=== PATIENT | male | born 1995 | race Caucasian/White ===

== ENCOUNTER 2025-06-05 08:00 | Outpatient (RCR) | payer BC, SELFPAY ==
--- NOTE | 2025-06-05 10:00 | BH.SGPN.GN ---
Behaviors/Verbalizations/Mental Status: []Eye contact is good. Motor activity is appropriate. Appearance is neat. Speech is Appropriate. Mood is anxious. Affect is congruent. Thoughts are linear and logical. No evidence of psychosis. Client Response/Progress/Benefit: [] Pt was an active participant in group discussions. Attentive during psychoeducation. Contributed during interactive discussions in which peers attempted to define crisis. Group identified crisis examples. Group also worked together to identify warning signs and unhealthy responses to crisis which included shutting down, isolation, avoidance, over-thinking, disordered eating, and self-harm. Pt identified top 3 warning signs as: avoids eating, negative thoughts, avoiding anxiety-provoking situations. Benefited from increased understanding of crisis and awareness of personal responses to crisis. Pt will continue IOP tx to prevent decompensation, gain healthy coping skills, and improve daily functioning. Narrative Note: []
--- NOTE | 2025-06-05 10:17 | BH.COMM_ITS ---
Communication Note Communication with Client Communication Note: Met with pt to complete initial paperwork. Discussed case with Dr. Faust and pt will be admitted to [facility] tx with a diagnosis of F41.1 NICOLE.
--- NOTE | 2025-06-05 10:17 | BH.COMM ---
Communication Note Communication with Client Communication Note: Met with pt to complete initial paperwork. Discussed case with Dr. Faust and pt will be admitted to [facility] tx with a diagnosis of F41.1 NICOLE.
--- NOTE | 2025-06-05 11:00 | BH.SGPN.GN ---
Behaviors/Verbalizations/Mental Status: []Pt alert and oriented, appropriate grooming/appearance. Eye contact fair. Motor activity appropriate. Speech within normal limits. Affect constricted, mood anxious. Thoughts linear, logical, no signs of hallucinations or delusions. Client Response/Progress/Benefit: []Pt was an active participant in group discussions. Attentive during psychoeducation. In small group pt along with peers developed an active plan for their crisis warning signs. Pt identified three crisis warning signs as well as an action plan for each. One crisis warning sign was avoiding anxious situations. Pt identified strategies to help with this such as: slowly introduce a anxious situation, list rational thoughts to counteract the anxious thoughts, and create a fear hierarchy to engage in small exposure goals. Benefited from increased awareness of crisis warning signs and by developing crisis intervention strategies. Will continue in IOP to improve daily functioning, increase healthy coping, and prevent decompensation.
--- NOTE | 2025-06-05 13:07 | BH.MDN ---
Multi-Disciplinary Note Note 30-min Individual: Time Started:: 11:55 Date: 06/05/25 Purpose of session/treatment goals addressed:: To gather information on pt's current stressors, symptoms, triggers, history, and tx goals. Another goal was to build rapport and provide emotional support. Eye Contact:: Good Motor Activity:: Appropriate Appearance:: Neat Speech:: Soft Mood:: Anxious Affect:: Congruent Thoughts:: Linear, Logical and No evidence of hallucinations/delusions noted Staff Interventions:: psychoeducation on: (Fear ladders and anxiety), rapport building, strengths perspective, treatment planning and goal setting Client Response:: Pt responded well to session, open to meeting with therapist. Pt shared his first day went well and pt feels that hearing from peers with similar experiences was helpful. Pt shared he wants to work on my stress with food and stress with the cat. Pt stated he has struggled with appetite and GI issues throughout his life so now I spiral thinking about eating. Pt shared he can only eat right now if he takes one of his Klonopins and even then pt reports I don't really enjoy it. Pt also wants to be able to be able to handle having the cat because it's important for my . Pt shared right now the kitten he and his have stays in the basement and pt basically avoids it. Pt reports he is not a cat person in general, but he is more fearful of what could happen if the cat lives upstairs. Pt shared I know it's irrational, but I just think the cat is going to ruin all the things and I tell myself I can't do it. Pt stated he can be particular about his environment, so pt is highly anxious about the cat messing that up. Pt shared he currently avoids the cat and he constantly distracts himself because pt is so afraid I'll have a panic attack. Pt reports that he knows his reaction is out of proportion to the situation and pt wants to be able to co-exist with the cat. Pt receptive to treatment planning including creating a fear ladder and building distress tolerance. Risks/Concerns:: Pt denies any suicidal ideation, plan, or intent. Pt denies any thoughts of . Progress Toward Goals/Plan:: Pt's first day of IOP tx and pt shared it went okay. Pt shared he enjoyed listening to peers talking about their own experiences and this helped pt feel less alone. Pt stated he wants to work on his issues with food and the cat. Pt and therapist discussed goals to help pt get back to his usual functioning and reduce avoidance. Pt will continue IOP tx to gain healthy coping skills, improve daily functioning, and increase distress tolerance. Time Stopped:: 12:15
--- NOTE | 2025-06-05 13:24 | BH.MTP_ITS ---
Master Treatment Plan Patient Information Program Physician:: Dr. Ron Faust Primary Therapist:: Sammie PARKINSON Psychiatric Diagnoses Psychiatric Diagnoses:: NICOLE F41.1 Diagnosis Code(s):: F41.1 Estimated LOS Estimated LOS (in weeks):: 6 Problem/Goal #1 Problem/Goal #1 Stated Goal:: Pt will reduce overall frequency and intensity of NICOLE symptoms so that daily functioning is less impaired. Description of Barriers: Pt reports his anxiety has been impacting his functioning at work, home, and within his relationships. Pt has health issues that get exacerbated by his anxiety and that also trigger his anxiety. Functional Impact: Pt is a 29-year-old male with a history of NICOLE who was referred to [facility] tx by his outpatient therapist at [facility] due to worsening anxiety and decompensation over the past two months. Pt currently endorses daily anxiety with panic attacks, racing thoughts, avoidance behaviors, poor appetite, weight loss, and nausea. Pt also reports occasional passive SI due to the stress he has been under, but no report of active SI. Pt's symptoms are impacting his ability to function on a daily basis. Goal Relevant Strengths/Supports: Pt is established with outpatient counseling through [facility] and he is taking his medications as prescribed. Pt enjoys his work and has supports in his life. Objectives Objective #1: Stated Objective: Pt will improve ability to cope with NICOLE symptoms and reduce avoidance by setting 1-2 small exposure goals each week. Interventions: Through group and individual therapy, pt will gain skills on distress tolerance and sitting with the uncomfortable. Therapist will help pt set small, realistic exposure goals each week. Therapist will have pt practice these goals both in session and at home. Therapist will provide psychoeducation on why this is important to reducing anxiety, somatic symptoms, and phobias. Therapist will also provide psychoeducation on intrusive thinking and reducing safety behaviors. Discharge Criteria: Pt will have accomplished this goal when pt can report accomplishing at least 1 exposure goal per week and can report reduced avoidance overall. Target Date: 07/17/25 Review Date: 06/26/25 Status: open Objective #2: Stated Objective: Pt will identify 2-3 anxiety and panic triggers and 2 coping skills to use to manage anxiety and to reduce DSM-5 scores. Interventions: Through group and individual sessions, pt will gain awareness of anxiety and panic triggers and learn numerous techniques to manage anxiety and panic symptoms. Therapist will teach mindfulness and other calming techniques to manage symptoms and increase distress tolerance skills. Therapist will also help pt utilize mindfulness skills to sit with the uncomfortable to increase confidence in managing triggers. Discharge Criteria: Pt will have met this goal when pt can identify at least 2 triggers and 2 ways to cope with anxiety and panic and when his DSM-5 scores have reduced. Target Date: 07/17/25 Review Date: 06/26/25 Status: open
--- NOTE | 2025-06-05 13:24 | BH.PSA ---
Source of Information Presenting Problems/Circumstances Problems, Referral Source, Mental Status, Client: Pt is a 29-year-old male with a history of NICOLE who was referred to [facility] tx by his outpatient therapist at [facility] due to worsening anxiety and decompensation over the past two months. Pt currently endorses daily anxiety with panic attacks, racing thoughts, avoidance behaviors, poor appetite, weight loss, and nausea. Pt also reports occasional passive SI due to the stress he has been under, but no report of active SI. Pt's symptoms are impacting his ability to function on a daily basis. Psychiatric Presentation Psych Issues & Need for Admission Psychiatric Issues:: NICOLE, Rule out somatic symptom disorder; primary martial stress. Past Psychiatric History MH Treatment Hx Treatment History: Pt denies history of any previous hospitalization. Pt started seeing a therapist at [facility] about three years ago and has seen them on and off. Pt has never been in an [facility] before. First hospitalization:: none Most recent hospitalization:: none Medication Trials:: Yes ECT Therapy:: No Age of first mental health symptoms: Pt began struggling about three years ago at age 26. Describe (age, circumstance, etc) any past hospitalizations: Pt denies any hospitalizations Current providers for mental health treatment (counselor, psychiatrist, top case assembler, etc.): No current psychiatrist. Pt sees Angy Espinoza at [facility] but has not seen her in about a month. Development & Family of Origin Childhood Significant Childhood Events: none reported Family Who currently lives in your home?: Pt lives with his and their cat. Describe family composition:: Pt is and he describes their relationship as mostly good, but they are having some conflict currently. Pt has one older sister and both his parents are alive. Pt has a good relationship with his family. Pt and his have no children. Family History Family Hx of Psychiatric or AOD Problems: Mother and sister have anxiety per pt's report Ethnicity Culture Do you identify yourself with any particular cultural, ethnic background, or community?: No Sexuality Sexual Orientation: Heterosexual Spirituality Mormonism Do you currently identify with any organized episcopal?: None Beliefs Is there a particular form of support from this community you can use for your recovery?: No Mental Status Memory Recent Memory: Good Remote Memory: Good Concentration Concentration: Good Eye Contact Eye Contact: Good and Stares Speech Speech: Soft Thought Process Thought Process: Logical and Ruminations Insight: Fair Judgment: Good Behavior: Anxious Orientation Orientation: Time, Person, Place and Situation Appearance Appearance: Neat/clean Mood Mood: Anxious and Depressed Affect Affect: Constricted Suicide Assessment Suicidal Ideation Have you ever felt like hurting yourself?: No Were you using ETOH/drugs at the time?: No Suicidal Intentional Rating Scale (SIRS): No suicidal thoughts (past or present) Physician Notification Violent Behavior/Abuse History Homicidal Ideation Do you have any homicidal thoughts? If so, explain:: No Abuse Have you ever been abused?: No Life Events Are there any other significant life events?: Hardships (current stress with work, marriage, and health.) Safety Do you ever feel threatened in your home? If yes, describe:: No Adult Social History Age 18 to Present Describe your current support system:: Pt has his , his family, and a few friends. Substance Use Substance Substance Use Type: None (pt denies any substance and alcohol use.) Leisure/Social Activities Interests What do you enjoy or might be interested in learning about?: Pt enjoys reading, being outside, and cooking when he feels well. 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 Service Service Have you ever been in the ?: No Legal History Records Have you had any past legal charges?: No Do you have any current legal charges?: No Have you ever been incarcerated? If yes, describe:: No Court Orders Have you had any past court orders for psychiatric treatment?: No Do you have a present court order for psychiatric treatment?: No Problem Checklist Current Problem Areas Problem List: Nutritional/Eating pattern changes (Doesn't like going out to eat because he is fearful he might need to run to bathroom. Does frequently feel anxious in other situations like having to travel, again frequently associated with GI complaints. ), Depressed mood/sad, Anxiety and Additional psychosocial stressors (work and marriage stress. Stress around his new cat.) Discharge Planning Needs Anticipated Follow-Up Mental Health Center (Name/Phone Number):: [facility] [employer] [facility] Assessment Client's Needs What are the client's goals?: Reduce anxiety and be able to handle things people can normally handle. What are the client's strengths?: Pt is established with outpatient counseling through [facility] and he is taking his medications as prescribed. Pt enjoys his work and has supports in his life. Diagnoses Diagnoses Diagnosis #1:: NICOLE Interpretive Summary Interpretive Summary Interpretive Summary: Pt is a 29 year old male who presents today for IOP intake evaluation. Pt admits to some significant stress after his got a new cat. States that for some reason it got me really stressed out. Started having increasing nausea and reduced appetite; lost 15 lbs over the course of the last month. They had found the cat, and his initial expectations were that they were going to rehome the cat but she wanted to keep it; which led to some conflict. Pt reports he and his have a mostly good relationship, but this has been a significant stressor. Reports that his relationship with food has been not great. Elaborates that he has a history of GI problems as a child so when anxious experiences worsening somatic symptoms. Doesn't like going out to eat because he is fearful, he might need to run to bathroom. Does frequently feel anxious in other situations like having to travel, again frequently associated with GI complaints. Pt remembers being anxious in school and also in social situations, but anxiety did not start impacting his functioning until about three years ago. Describes even feeling anxious about the program and the potential of having to share. Pt went to his PCP when he first started to decompensate and was put on medication that pt felt was only somewhat helpful. 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 Subsequently missed nearly a week of work after this episode. Feels like he has not had regular panic attacks since taking clonazepam. No report of substance or alcohol use/abuse. No family history of substance abuse reported. Pt denies any abuse during childhood. Pt?s mother and sister both have anxiety. Treatment Plan Recommendations Recommendations Guidelines Recommendations:: Pt will start IOP as the structure, support, education and group therapy with ideally prevent worsening of patient's symptoms which could result in admission to higher level of care such as [facility] or psychiatric admission. I have reasonable expectation that pt will make timely and significant improvement in the presenting acute symptoms as a result of the program and eventually be discharged to a lower level of care. Pt will need a psychiatrist prior to IOP discharge.
--- NOTE | 2025-06-07 09:00 | BH.SGPN.GN ---
Behaviors/Verbalizations/Mental Status: [] Eye contact is good. Motor activity is appropriate. Appearance is casual. Speech is Appropriate. Mood is euthymic. Affect is full. Thoughts are linear and logical. No evidence of psychosis. . Client Response/Progress/Benefit: [] Pt participated at times during the group discussions. Attentive. Able to identify mental health wins and healthy habits. Reports feeling ?content? and seeing ?improvement? in his mental health. Engaged in household tasks yesterday indicating motivation, energy, and ability to focus. Progress noted per pt report. Benefited from group support, encouragement, and feedback. Will continue in IOP to prevent decompensation, stabilize anxiety/intrusive thoughts, and increase healthy coping. Narrative Note: []
--- NOTE | 2025-06-07 10:10 | BH.SGPN.GN ---
Behaviors/Verbalizations/Mental Status: [] Eye contact good, Motor activity is appropriate, Appearance is neat. Speech appropriate. Mood calm. Affect congruent. Thoughts are linear and logical. No evidence of psychosis. Client Response/Progress/Benefit: [] Pt was an active participant during interactive group discussions. Attentive during discussion of the different types of boundaries (rigid, porous, healthy) Took notes and provided input. Contributed to the discussion on defining boundaries and the benefits and barriers to them. Active participant in the boundary continuum activity. Identified boundary type as more porous, sharing that he often does not enforce boundaries due to fear of an argument. Group discussed mental health benefits to establishing boundaries, and also situations in which lessening boundaries are appropriate. Pt benefited from increased awareness and insight on the importance of boundary setting. Pt will continue in IOP to increase healthy coping skills, reduce negative thought patterns, and improve functioning.
--- NOTE | 2025-06-07 11:10 | BH.SGPN.GN ---
Behaviors/Verbalizations/Mental Status: []Pt alert and oriented, casually dressed and groomed. Eye contact fair. Motor activity appropriate. Speech within normal limits. Affect congruent, mood anxious. Thoughts linear, logical, no signs of hallucinations or delusions. Client Response/Progress/Benefit: [] Client responded well to session AEB listening attentively to peers, providing input, as well as taking notes throughout. Group discussed different styles of boundary setting. Worked with group to discuss positive and negative consequences from each boundary style. Participated in small group discussion brainstorming various strategies for improving healthy boundary setting. Pt took time to complete reflection on which skills would like to implement to improve boundaries. Seemed to benefit from increased awareness of how different boundary styles can impact mental health. Will continue IOP tx continue working on decreasing anxious avoidance, improve emotion regulation, and prevent decompensation.
--- NOTE | 2025-06-08 07:45 | PCM.BH.PSYEV ---
Intake Vital Signs 06/08/25 09:28 Height 5 ft 9 in Weight: 147 lb BP 145/92 H Pulse 72 Intake Visit Reasons: IOP Intake Allergies cephalexin (From Keflex) Adverse Reaction (Mild, Verified 06/08/25 09:18) Rash sulfamethoxazole (From Septra) Adverse Reaction (Unknown, Verified 06/08/25 09:18) Rash trimethoprim (From Septra) Adverse Reaction (Unknown, Verified 06/08/25 09:18) Rash Penicillins Adverse Reaction (Verified 06/08/25 09:18) Rash Medications ?Medication ?Instructions ?Recorded ?Confirmed ?Type buspirone 15 mg tablet 15 mg PO BID #60 tabs 06/08/25 06/08/25 Rx clonazepam 0.5 mg tablet 0.5 mg PO QHS 06/08/25 06/08/25 History clonazepam 0.5 mg tablet (Klonopin) 0.5 mg PO DAILY PRN anxiety 06/08/25 06/08/25 History escitalopram oxalate 20 mg tablet 20 mg PO DAILY 06/08/25 06/08/25 History hydroxyzine pamoate 50 mg capsule 50 mg PO Q8H PRN PRN anxiety 06/08/25 06/08/25 History mirtazapine 7.5 mg tablet 7.5 mg PO BID 06/08/25 06/08/25 History PFSH () Medical History (Updated 06/08/25 @ 08:[address] Ron Faust, ) NICOLE (generalized anxiety disorder) HPI () History of Present Illness History provided by: patient Chief complaint: anxiety HPI: Jericho Brown is a 29 year old male who presents today for IOP intake evaluation. Patient admits to some significant stress after his got a new cat. States that for some reason it got me really stressed out. Started having increasing nausea and reduced appetite; lost 15 lbs over the course of the last month. They had found the cat, and his initial expectations were that they were going to rehome the cat but she wanted to keep it; which led to some conflict. Reports that his relationship with food has been not great. Elaborates that he has a history of GI problems as a child so when anxious experiences worsening somatic symptoms. Doesn't like going out to eat because he is fearful he might need to run to bathroom. Does frequently feel anxious in other situations like having to travel, again frequently associated with GI complaints. Remembers being anxious in school and also in social situations. Describes even feeling anxious about the program and the potential of having to share. Currently taking 20 mg lexapro and mirtazapine 7.5 mg BID. Has taken several other medications in the past. Also taking clonazepam, usually taking 0.5 mg in the morning and night. Been on for the past 3 years. Takes buspirone 15 mg qHS as well. Feels like nightly combination helps so that he can eat, but morning is not quite as effective. Denies feeling significantly depressed. Has been trying to read at night and this has been helping. 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 Subsequently missed nearly a week of work after this episode. Feels like he has not had regular panic attacks since taking clonazepam. Sleep: gets about 8 hours Interest: normally good, but harder in the last 6 weeks Guilt: some mild guilt about the way he is feeling Energy: some daily grogginess Concentration: good Appetite: see above Psychomotor: WNL Suicide: denies Memory: largely good Anxiety: see HPI Obsessions: denies Compulsions: denies Mercedes: denies PTSD: denies Psychosis: denies history of auditory or visual hallucinations, denies disorganized thoughts, denies disorganized speech Developmental History Developmental History: Siblings - 1 sister, older Born/Raised - [place], [place] Education - [employer] Living Situation - lives with Legal Issues - denies Employment - works at [employer] for the past 8 years; [employer] Psychiatric History Previous psychiatric treatment history: No Previous psychiatric diagnoses: NICOLE Previous psychiatric treatment programs: none Family Psychiatric History: Mother - anxiety Sister - anxiety Suicidal Ideation Current: No Past: No History of suicide attempt: No Suicide Risk Assessment Suicide risk factors: physical illness/pain and other (anxiety) Suicide protective factors: family support Self Injurious Behavior Current: none Past: none Medication Trials Previous psychiatric medication trials: escitalopram buspirone clonazepam mirtazapine trazodone - night sweats citalopram hydroxyzine - no benefit Current/Previous Provider Psychiatrist: denies previous Therapist: Angy nino [facility], about a month ago Other Substance Use History Nicotine- denies Alcohol- denies Marijuana- denies Stimulants- denies Opioids- denies Other- denies Review of systems () Constitutional Denies: fever(s), chills, change in weight or fatigue Eyes Denies: change in vision or blurry vision Ears, Nose, Mouth, Throat Denies: throat pain, neck pain or change in hearing Cardiovascular Denies: chest pain, palpitations or dyspnea Respiratory Denies: dyspnea, cough or wheezing Gastrointestinal Reports: abdominal pain, nausea and diarrhea; Denies: vomiting or constipation Genitourinary Denies: dysuria or urinary frequency Musculoskeletal Denies: back pain, neck pain, joint pain or muscle weakness Integumentary/Breast Denies: rash or new lesions Neurological Reports: headache(s); Denies: dizziness or confusion Endocrine Denies: fatigue or excessive sweating Hematologic/Lymphatic Denies: easy bruising or easy bleeding Allergic/Immunologic Denies: wheezing Exam () Mental Status Exam- Psych () Appearance casually dressed Attitude cooperative Activity/Motor Behavior MSE activity/motor behavior finding no adventitious movements Speech regular rate, regular volume and regular prosody Mood anxious Affect congruent Thought Process linear, logical and coherent Thought Content no delusions and no hallucinations Suicidal Ideation none Homicidal Ideation none Attention intact Concentration intact Sensorium/Orientation awake, alert and oriented x3 Memory/Cognition other (appropriate for stated age) Insight fair Judgement good Exam () Constitutional Documenting provider has reviewed patient's vital signs: yes Common normals: no acute distress, patient oriented x3 and alert General appearance: well developed Neuro Common normals: patient oriented x3 Sensorium/orientation: alert Gait (neuro): normal gait Assessment & Plan () Assessment & Plan (1) NICOLE (generalized anxiety disorder): Plan: - somatic symptom disorder (?) - Change buspirone to 15 mg BID - consider only taking mirtazapine at bedtime as opposed to the BID dosing he is doing now - Patient advised of the risk benefits and possible side effects of mirtazapine including but not limited to sedation, weight gain, GI side effects and dry mouth. ?Patient agreeable to trial medication at the time. - continue lexapro -Patient was informed about the risk, benefits and possible side effects of SSRI type medications. These side effects include but are not limited to nausea, diarrhea, headache, increased bleeding risk, and sexual dysfunction. 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 or psychiatric admission. I have reasonable expectation that the patient will make timely and significant improvement in the presenting acute symptoms as a result of the program and eventually be discharged to a lower level of care. Charges/Coding Behavior Health Behavior Health Psychiatric Evaluation: 47830 Psych Diag Exam w/ Medical Services
--- NOTE | 2025-06-08 07:45 | BH.DR.ITP ---
Initial Treatment Plan Patient Information Visit Information: ADMISSION DATE: 06/08/2025 EXPECTED LOS: 4-6 weeks Problems/Symptoms Problem #1:: anxiety Symptom:: nausea/GI symptoms, nervousness, shortness of breath, panic
--- NOTE | 2025-06-08 09:00 | BH.SGPN.GN ---
Behaviors/Verbalizations/Mental Status: [] Client alert and oriented, casual appearance. Eye contact fair. Motor activity appropriate. Speech within normal limits. Affect congruent, mood anxious. Thoughts linear, logical, no signs of hallucinations or delusions. Reviewed client's symptom tracker, no risk for suicidal ideation, plan, or intent. Client Response/Progress/Benefit: [] Client responded well to session AEB listening to others and sharing thoughts/feelings. Client reported month of positive as having a hard position with his about boundaries with their cat. Client noted additional mental positive as being able to eat 3 meals yesterday. Client noted continued stressor as the cat and work. Appeared to benefit from support from peers. Will continue IOP tx to decrease anxious avoidance, challenge negative thoughts, and prevent decompensation. Narrative Note: []
--- NOTE | 2025-06-08 09:00 | BH.NA ---
Physical Data Vital Signs Pulse Rate: 72 Blood Pressure: 145/92 Height/Weight Height: 1.75 m Weight:: 66.678 kg Weight in Pounds: 147.0 lbs Current Medication Compliance Medication Compliance Do you take your medication as prescribed?: Yes Functional Assessment Sleep Pattern Describe any problems with sleeping: Client states he sleeps 7-8 hours per night. Sensory/Communication Assess Communication Problems Do you have difficulty understanding what people are saying?: No Medical Problems/History Gastrointestinal Conditions Gastrointestinal: Other (See comments) (mild IBS) Pain Assessment Do you have acute or chronic pain?: No Surgical History Surgical History Have you had any surgeries? If so, list type and date:: Yes (ear tubes) Substance Abuse Substance Abuse Please describe substance abuse in the last 30 days:: Client denies alcohol, tobacco or substance use. Client drinks tea daily with caffeine. Mental Status Summary Mental Status Significant Findings/Observations on Appearance and Mood:: Client is alert and oriented x 4. Client is casually groomed with good hygiene. Client is cooperative with assessment. Client makes fair eye contact. Client's voice has normal rate and volume. Client appears mildly anxious. Client has a mood congruent affect. Client makes logical associations and has normal processing. Client denies delusions/hallucinations. Client denies SI at this time. Suicide Assessment Suicidal Ideation Are you currently or have you been suicidal in the past?: Yes Suicidal Intentional Rating Scale (SIRS): Suicidal thoughts (past) (occasional passive SI in the past) Physician Notification Past Psychiatric History MH Treatment Hx Past Psychiatric Medications:: Trazodone (caused night sweats), Celexa Age of first mental health symptoms: Client states he can remember feeling anxious most of his life. Client states he first started medication for anxiety around age 19. Describe (age, circumstance, etc) any past hospitalizations: None. Current providers for mental health treatment (counselor, psychiatrist, casework specialist, etc.): Angy Espinoza for therapy at [facility] Risk Assessment Age Age: Less than 60 Mental Status Mental Status: Willing & able to ask for assistance when needed Physical Status Physical Status: No problems Impairments Impairments: None Elimination Elimination: Continent AND independent Gait or Balance Gait or Balance: Walks independently Hx of Falls History of falls in the past 6 months: No known history Medications/Substances Psychotropics:: Antidepressants and Anxiolytics (e.g. benzodiazepines) Medications/substances used within the past 24 hours or ordered to administer: 1-2 of the medications/substances listed above Total Score Total Points:: 1 RN Summary of Impressions Impressions Recommendations Impressions: Psychiatric Issues: Generalized Anxiety Disorder Level of Care How do the client's current symptoms and functional deficits support need for this level of care?: Client was referred to IOP by his outpatient therapist for a decompensation in his mental health over the last 6-8 weeks. Client states he found a cat and brought it home with intentions on finding it a home but now his wants to keep the cat and this is a stressor because he does not like cats. Client states this has lead to other relationship stressors. Client also states he had a huge 5 month long project at work that just came to a close and he is wondering if this shift is causing him some mental stress as well. Client denies SI at this time, but does report some passive thoughts of occasionally. Client reports feeling anxious, having racing thoughts and a decrease in appetite which has lead to slight weight loss. IOP will promote gains and prevent further decompensation while providing social support and skills training. Nutritional Screen Height/Weight Height: 1.75 m Weight:: 66.678 kg Weight in Pounds: 147.0 lbs Nutrition Screening Normal Weight: 70.307 kg Normal/Usual Weight in Pounds: 155.0 lbs Have you lost weight without trying: Yes Have you been eating poorly because of a decreased appetite: Yes (decreased appetite due to anxiety, states he does not usually have issues with appetite and does not feel he needs a dietary consult) Recently been on tube feeds, TPN, or have any nutritional access device in place: No Have any large open wounds or wounds that are not healing: No Calculated Weight Change: [id number] Change in weight Score: 1 MST Screening Tool Score: 4 *Automatic Nutrition referral for a score of 2 or greater.*: decreased appetite due to anxiety with recent weight loss due to stress, states he does not usually have issues with appetite and does not feel he needs a dietary consult
[2025-06-08 09:28] VITALS: BP 145/92; PULSE 72
--- NOTE | 2025-06-08 10:15 | BH.SGPN.GN ---
Behaviors/Verbalizations/Mental Status: []Pt alert and oriented, neatly dressed and groomed. Eye contact good. Motor activity appropriate. Speech within normal limits. Affect constricted, mood anxious. Thoughts linear, logical, no signs of hallucinations or delusions. Client Response/Progress/Benefit: [] Pt engaged and actively participating in discussion, taking notes. Pt attentive during psychoeducation about the window of tolerance and noted personal connections. Group identified what contributes to low distress tolerance. The group gained awareness of the three zones of tolerance and pt was able to identify what they look like in each zone. Pt shared personal signs in hyperarousal zone are: lack of self-care, irritation, and irrational thinking. Pt shared signs in the window of tolerance, they feel controlled, positive, and in-check. Pt appeared to benefit from psychoeducation on distress tolerance and practicing self-reflection. Pt will continue IOP tx to improve daily functioning, increase distress tolerance, and improve mood stability. Narrative Note: []
--- NOTE | 2025-06-08 11:15 | BH.SGPN.GN ---
Behaviors/Verbalizations/Mental Status: []Pt alert and oriented, casually dressed and groomed. Eye contact good. Motor activity appropriate. Speech within normal limits. Affect congruent, mood anxious. Thoughts linear, logical, no signs of hallucinations or delusions. Client Response/Progress/Benefit: [] Pt responded well to session AEB taking notes and contributing to discussion throughout. Pt engaged as group continued discussion on distress tolerance and the mental health benefits of widening their overall Window of Tolerance. Pt engaged with group in experiential activity provided input on connections between variables in the activity and distress tolerance. Worked within small groups to identify strategies to increase distress tolerance and reduce hyper-arousal and hypo-arousal states. Identified wanting to begin implementing distress tolerance skills of: changing environment, deep breathing, and talking to his . Pt appeared to benefit from gaining insight and learning strategies to increase distress tolerance. Pt will continue IOP tx to promote use of healthy coping skills, improve mood stability and distress tolerance, and prevent decompensation. Narrative Note: []
--- NOTE | 2025-06-12 09:00 | BH.SGPN.GN ---
Behaviors/Verbalizations/Mental Status: [] Eye contact is good. Motor activity is appropriate. Appearance is casual. Speech is Appropriate. Mood is anxious. Affect is congruent. Thoughts are linear and logical. No evidence of psychosis. Client Response/Progress/Benefit: [] Pt participated when prompted. Attentive. Brief check in this AM. Identified recent stressors and their impact on thoughts and overall mental health. Mental health win is that he is continuing with household tasks. Emotion is ?calm?. Progress noted. Benefited from group support, encouragement, and feedback. Will continue in IOP to prevent decompensation, stabilize anxiety/intrusive thoughts, and increase healthy coping. Narrative Note: []
--- NOTE | 2025-06-12 11:10 | BH.SGPN.GN ---
Behaviors/Verbalizations/Mental Status: []Client alert and oriented, casually dressed and groomed. Eye contact good. Motor activity appropriate. Speech within normal limits. Affect congruent, mood anxious and depressed. Thoughts linear, logical, no signs of hallucinations or delusions. Client Response/Progress/Benefit: [] Pt participated throughout AEB contributing to discussion, providing examples, and taking notes. Pt provided input during discussion on the types of support our supports can provide. Pt able to identify current support system and barriers that get in the way of using supports. Pt reported after identifying what type of supports pt receives, pt gained awareness that pt could benefit from more emotional support by continuing to reach out to new people and gain new perspectives. Pt seemed to benefit from identifying the type of support pt needs to work on improving. Pt recommended to continue IOP tx to promote increase positive self-talk, improve mood stability, and prevent decompensation. Narrative Note: []
--- NOTE | 2025-06-12 15:17 | BH.MDN ---
Multi-Disciplinary Note Note 45-min Individual: Time Started:: 10:20 Date: 06/12/25 Purpose of session/treatment goals addressed:: To work on goal #1 of pt's tx plan by developing pt's fear ladder and practicing calming skills. Eye Contact:: Good Motor Activity:: Appropriate Appearance:: Neat Speech:: Appropriate Mood:: Euthymic and Anxious Affect:: Full Thoughts:: Linear, Logical and No evidence of hallucinations/delusions noted Staff Interventions:: CBT techniques, mindfulness skills (practiced progressive muscle relaxation), strengths perspective, goal setting, taught coping skills and other (reviewed fear ladders and developed pt's fear ladder. Set goal for exposure for the week.) Client Response:: Pt responded well to session, open to meeting with therapist. Pt reports he has been doing better so far this week. Pt shared his appetite is slowly returning and he was able to mow and cook this weekend. Pt reports his mood improvement is likely a combination of a medication adjustment and IOP. Pt completed his homework from last session which was to identify situations that he has been avoiding due to anxiety and ranking these. Pt will use these to create fear ladder goals and pt and therapist discussed the ranking of pt's situations. Pt learned how to approach fear ladders to get the most benefit which includes intentionality, prolonged exposure, and the ability to repeat. Also discussed potential barriers such as avoidance tactics like being on his phone. Pt's goal for the week is to go to the basement and spend 20 minutes with his cat every evening. Pt reports this will trigger some anxiety, but not severe anxiety. Rehearsed calming [id number] pt can use while practicing his exposure goal. Pt reports he plans to practice this each night before he showers. Risks/Concerns:: Pt denies any suicidal ideation, plan, or intent. Pt denies any thoughts of . Progress Toward Goals/Plan:: Pt reports he is benefitting from IOP tx so far and reports feeling less anxious than last week. Pt feels that he is connecting with peers and learning from the topics. Pt reports his anxiety is reduce this week, but pt noted that there wasn't a lot of stressors this weekend though. Pt is still avoiding things due to his anxiety and he is experiencing physical symptoms still. Pt receptive to working on his fear ladder for homework. Pt will continue IOP tx to prevent decompensation, improve daily functioning, and gain distress tolerance skills. Time Stopped:: 11:00
--- NOTE | 2025-06-14 09:00 | BH.SGPN.GN ---
Behaviors/Verbalizations/Mental Status: [] Eye contact is good. Motor activity is appropriate. Appearance is casual. Speech is Appropriate. Mood is anxious. Affect is congruent. Thoughts are linear and logical. No evidence of psychosis. Client Response/Progress/Benefit: [] Pt participated at times during the group discussions. Attentive. He reports ? severe anxiety? yesterday which led to intrusive thoughts and hesitation regarding eating. Insight that progress is not linear however despite the panic attacks and exacerbation of symptoms he was able to utilize skills so this did not impact his for several days. He views this as progress. Benefited from group support, encouragement, and feedback. Will continue in IOP to prevent decompensation, increase healthy coping, and decrease intrusive thoughts Narrative Note: []
--- NOTE | 2025-06-14 10:10 | BH.SGPN.GN ---
Behaviors/Verbalizations/Mental Status: [] Eye contact is good. Motor activity is appropriate. Appearance is casual. Speech is Appropriate. Mood is anxious. Affect is congruent. Thoughts are linear and logical. No evidence of psychosis Client Response/Progress/Benefit: [] Pt receptive of session, actively engaged throughout AEB taking notes, providing input, and contributing in small group discussion. Appeared to connect with group topic of automatic thoughts and cognitive distortions, as well as the impact of thought patterns on mental health, coping behaviors, and relationships. This particular group is very heavy on psychoeducation and pt appeared to connect with distortions and how they can impact functioning. Pt stated could connect with numerous of the distortions. Pt appeared to benefit from gaining insight on distorted thinking patterns and how this impacts overall mental health. Will continue IOP to challenge negative thoughts, improve view of self, and prevent decompensation.
--- NOTE | 2025-06-14 11:10 | BH.SGPN.GN ---
Behaviors/Verbalizations/Mental Status: [] Eye contact is good. Motor activity is appropriate. Appearance is casual. Speech is Appropriate. Mood is euthymic. Affect is congruent. Thoughts are linear and logical. No evidence of psychosis. Client Response/Progress/Benefit: [] Pt was an active participant and responded well to session AEB input and examples during group activity. Group discussed and practiced methods of reframing cognitive distortions. Pt participated in identifying cognitive distortions when examples were provided. Pt discussed in group the different strategies to overcome the distortions. Pt identified cognitive distortion they used most often and made plan to identify and challenge thoughts that contribute to it as homework over the next couple of days. Pt did well in small group during experiential activity and helped group identify answers. Will continue tx to promote mood stability, combat anxious thought patterns, and improve daily functioning. Narrative Note: []
--- NOTE | 2025-06-15 09:02 | BH.SGPN.GN ---
Behaviors/Verbalizations/Mental Status: [] Pt alert and oriented, neat and casually dressed and groomed. Eye contact good. Motor activity appropriate. Speech within normal limits. Affect congruent, mood anxious. Thoughts linear, logical, no signs of hallucinations or delusions. Reviewed pt?s symptom tracker, pt reports suicidal ideation as a 0/5. Denies plan or intention. Client Response/Progress/Benefit: [] Client responded well to session as evidenced by listening attentively to others, providing feedback, and processing with group. Per symptom tracker client reported a 0/5 for depression and a 2/5 for anxiety. Client reported mental health positive as challenging himself to follow-through with a pre-operative appointment with the ENT following group today. Shared using sitting with the uncomfortable and opposite action, as well as reminding himself of the long-term benefits of the surgery. Reports the anticipation of recovery is his stressor, but is doing well to manage this. Additional win noted as making several necessary phone calls to address needs around the house. Client seemed to benefit from support from others and the group environment. Client to continue IOP to improve self-compassion, improve mood stability, and prevent decompensation. Narrative Note: []
--- NOTE | 2025-06-15 10:15 | BH.SGPN.GN ---
Behaviors/Verbalizations/Mental Status: []Pt alert and oriented, casually dressed and groomed. Eye contact good. Motor activity appropriate. Speech within normal limits. Affect congruent, mood anxious. Thoughts linear, logical, no signs of hallucinations or delusions. Client Response/Progress/Benefit: []Pt was an attentive and active participant, AEB taking notes and providing input in group discussion. Attentive during psychoeducation. Pt engaged during interactive discussion in which the group defined self-care and discussed its benefits. Group discussed barriers and benefits to self-care. Identified benefits as being more productive, less physical pain, feeling happier, less irritability, and being more capable. Pt participated in small groups where they worked to identify and challenged common self-care ?myths?. Benefited from increased awareness of self-care, its benefits, and the consequences of not utilizing self-care strategies. Pt connected with myths of self-care being too expensive and it feels selfish. Will continue IOP tx to promote mood stability, reduce avoidance behaviors, and improve distress tolerance skills. Narrative Note: []
--- NOTE | 2025-06-15 11:10 | BH.SGPN.GN ---
Behaviors/Verbalizations/Mental Status: []Pt alert and oriented, casually dressed and groomed. Eye contact fair. Motor activity appropriate. Speech within normal limits. Affect constricted, mood anxious. Thoughts linear, logical, no signs of hallucinations or delusions. Client Response/Progress/Benefit: []Pt engaged participant AEB completing self-assessment worksheet and providing input throughout discussion. Participated in group discussion on the various areas of self-care. Pt completed worksheet identifying current self-care practices and what self-care activities pt wants to start using. Pt engaged in self-reflection activity in which pt's were asked to identify one area of self-care they would like to improve upon. Pt completed the task but chose to not share with the group. Appeared to benefit from completing the self-care evaluation and gaining insights into current self-care practices, as well as identifying areas in which pt ?would like to improve upon.?Will continue IOP to decrease anxious thoughts, improve healthy coping, and prevent decompensation.
--- NOTE | 2025-06-19 10:10 | BH.SGPN.GN ---
Behaviors/Verbalizations/Mental Status: [] Eye contact is good. Motor activity is appropriate. Appearance is casual. Speech is Appropriate. Mood is anxious. Affect is congruent. Thoughts are linear and logical. No evidence of psychosis. Client Response/Progress/Benefit: [] Pt receptive to session AEB listening attentively to others and taking notes. Pt attentive and contributed throughout psychoeducation on the cognitive triangle and maintenance cycles. Pt engaged during group discussion reviewing the impact of daily activities and behaviors in either reinforcing unhealthy maintenance cycles and depression or assisting in reducing symptoms (?down? vs ?up? activities). Pt participated during interactive discussion in which the group identified their own common up activities (walking, listening to music, car rides, being outside, movement, creative projects, organizing, showering, etc) and down activities (isolating, substance use, sleeping to escapade, and engaging in compulsions). Appeared to benefit from increased awareness of current behaviors and impact these have on mental health. Will continue IOP to prevent decompensation, decrease intrusive thoughts, and increase healthy coping. Narrative Note: []
--- NOTE | 2025-06-19 10:13 | BH.MDN ---
Multi-Disciplinary Note Note 60-min Individual: Time Started:: 08:55 Date: 06/19/25 Purpose of session/treatment goals addressed:: To work on pt's anxiety goals and to address pt's negative thought patterns. Eye Contact:: Good Motor Activity:: Appropriate Appearance:: Neat Speech:: Soft Mood:: Anxious and Other (encouraged) Affect:: Constricted Thoughts:: Linear, Logical and No evidence of hallucinations/delusions noted Staff Interventions:: thought challenging, psychoeducation on: (anxiety), CBT techniques, mindfulness skills, strengths perspective, goal setting (continue exposure goal from last week and set goal to practice self-talk statements) and taught coping skills (acceptance and dialectical thinking) Client Response:: Pt responded well to session, open to meeting with therapist. Pt reports he is both seeing progress and he also feels frustrated that he is still so anxious. Pt noted his anxiety is still highest at night which pt feels is due to eating and not having his PRN medication. Pt shared he is seeing progress in not letting his anxiety control days in a row and pt noted he can still function better after feeling anxious when in the past pt would shut down. Pt stated he has been able to spend time in the basement with the cat in a non-distracted way and distracted. Pt shared his biggest stressor right now is figuring out how not keep avoiding things because of my anxiety. Pt noted that for years he has avoided restaurants, events, and going places due to his anxiety. More specifically, pt is worried about not being close to home and having stomach issues. Through processing, pt shared that he is fearful of having an accident because of something he eats, so he avoids. Pt shared this could stem back to the 8th grade when pt had an accident at a school event when he was anxious. Pt stated he wanted to go to his [id number] soccer game this weekend, but pt is worried he will be too far away from home. This has impacted pt's ability to do things with his and pt shared his in-laws investigation division lieutenant me for it. Pt stated he feels anxious now when he is around them because he feels like he cannot express his needs. Discussed ways to start working on this and pt was receptive to starting a conversation with his about his worries and fear of judgement. Pt is also encourage to continue working on his exposure goals with the cat. Risks/Concerns:: Pt denies any suicidal ideation, plan, or intent. Pt denies any thoughts of . Progress Toward Goals/Plan:: Pt is making progress towards his tx goals AEB pt's report of using coping skills and following through with goals. Pt is noticing progress in his ability to bounce back after high anxiety, but he is still experiencing high anxiety on a daily basis. Pt is also still taking his PRN medication and he is working on weaning off of this. Pt will continue IOP tx to prevent decompensation, improve daily functioning, and increase distress tolerance. Time Stopped:: 10:00
--- NOTE | 2025-06-19 11:10 | BH.SGPN.GN ---
Behaviors/Verbalizations/Mental Status: []Pt alert and oriented, casually dressed and groomed. Eye contact fair. Motor activity appropriate. Speech within normal limits. Affect congruent, mood anxious. Thoughts linear, logical, no signs of hallucinations or delusions. Client Response/Progress/Benefit: [] Pt responded well to session, attentive and engaged in group discussions and activity. Actively engaged in continued discussion about up activities and down activities. Active participant as group discussed values and the benefits that knowing one's values can have on one's mental health. Client completed provided worksheet in which they identified most important personal values and wrote down one opposite action activity can engage in to be more congruent with his value. Benefited from increased awareness of their up activities and how incorporating their values into behavioral activation goals can positively impact mental health. Will continue in IOP to increase healthy coping, decrease anxiety, and prevent decompensation.
--- NOTE | 2025-06-21 09:00 | BH.SGPN.GN ---
Behaviors/Verbalizations/Mental Status: [] Eye contact is good. Motor activity is appropriate. Appearance is casual. Speech is Appropriate. Mood is anxious. Affect is congruent. Thoughts are linear and logical. No evidence of psychosis. Reviewed daily check in sheet and no reports of suicidal ideations or intent. Client Response/Progress/Benefit: [] Pt participated when prompted. Attentive. Daily symptom tracker notes 2/5 for anxiety. Able to identify mental health wins and moments when he utilized healthy skills. Increased confidence. Recognized resilience and growth based on managing through recent mental health obstacles. Progress noted. Benefited from group support, encouragement, and feedback. Will continue in IOP to prevent decompensation, stabilize anxiety, and increase healthy coping. Narrative Note: []
--- NOTE | 2025-06-21 10:10 | BH.SGPN.GN ---
Behaviors/Verbalizations/Mental Status: [] Client alert and oriented, casually dressed and groomed. Eye contact good. Motor activity appropriate. Speech within normal limits. Affect congruent, mood euthymic Thoughts linear, logical, no signs of hallucinations or delusions. Client Response/Progress/Benefit: [] Client responded well to session, attentive during psychoeducation on SMART goals (Specific, Measurable, Achievable, Realistic, and Time-bound) and engaged in group experiential activity. Participated in an interactive discussion with peers in which they worked together to define what a goal is and the benefits of having goals. Group identified benefits as; helps MH, improves motivation, improves confidence, and personal growth. Participated in interactive discussion in which group identified barriers to setting goals and following through with goals. Group barriers included health, lack of supports, making excuses, and avoidance. Benefited from increased awareness of benefits and strategies for goal-setting. Will continue in IOP tx to improve mood stability, reduce negative thinking patterns, and improve daily functioning. Narrative Note: []
--- NOTE | 2025-06-21 11:10 | BH.SGPN.GN ---
Behaviors/Verbalizations/Mental Status: [] Client alert and oriented, casually dressed, appropriately groomed. Eye contact good. Motor activity appropriate. Speech within normal limits. Affect congruent, mood euthymic. Thoughts linear, logical, no signs of hallucinations or delusions. Client Response/Progress/Benefit: [] Client was engaged during discussion and willing to complete the worksheet challenging them to develop a personal SMART goal. Client chose the goal of leaving house for planned activity with 2x monthly.. Client stated this will benefit them by allowing them to experience more life. Client identified barriers which included fearful of being away safe space and lack of desire. Identified lack of desire they will give self a reward when completing it. Client receptive to identifying solutions for these barriers and willing to begin working on this goal. Benefited from this group by developing a short-term SMART goal related to mental health. Will continue IOP tx to increase healthy coping, improve daily functioning, and prevent decompensation. Narrative Note: []
--- NOTE | 2025-06-22 09:00 | BH.SGPN.GN ---
Behaviors/Verbalizations/Mental Status: [] Pt alert and oriented, Neatly dressed and groomed. Eye contact good. Motor activity appropriate. Speech within normal limits. Affect congruent, mood calm. Thoughts linear, logical, no signs of hallucinations or delusions. Reviewed pt?s symptom tracker today, denies suicidal ideation, plan, and intent.06/22/25. Client Response/Progress/Benefit: []Pt was an active participant in group discussions. Attentive. Per patients daily symptom tracker, pt indicates a 0/5 for depression and a 2/5 for anxiety, with 5 being severe. Pt shared his mental health win as meeting his goal of planning more intentional time to spend with his , by attending a soccer game with her. Pt stated that while it was cold and rainy, he was happy to be able to spend the time with his . Pt's other mental health positive was not needing to take Klonopin before attending group. Pt reported his stressor as an upcoming deviated septum surgery which he is feeling anxious about. Pt was supportive and attentive to others in the group. Pt seemed to benefit from support from peers. Will continue IOP tx to promote healthy coping mechanisms, increase confidence, and prevent decompensation.
--- NOTE | 2025-06-22 10:15 | BH.SGPN.GN ---
Behaviors/Verbalizations/Mental Status: [] Eye contact is good. Motor activity is appropriate. Appearance is casual. Speech is Appropriate. Mood is anxious. Affect is congruent. Thoughts are linear and logical. No evidence of psychosis. Client Response/Progress/Benefit: [] Limited engagement in group discussions however attentive AEB note-taking. Attentive during psychoeducation on anxiety and cognitive triangle. Attentive during interactive discussion on defining anxiety and identifying cognitive and physiological symptoms of anxiety. The group discussed helpful vs harmful anxiety. Attentive as peers worked together to identify common physical/physiological signs of anxiety which included: butterflies in stomach, tension, increased HR, trembling, dry mouth, headaches, numbness/tingling, hot flashes, sweating, and blurry vision. Benefited from increased awareness and insight on anxiety and its impact. Will continue in IOP to prevent decompensation, decrease intrusive anxious thoughts, and promote use of healthy coping skills. Narrative Note: []
--- NOTE | 2025-06-22 11:15 | BH.SGPN.GN ---
Behaviors/Verbalizations/Mental Status: [] Eye contact is good. Motor activity is appropriate. Appearance is appropriate. Speech is Appropriate. Mood is anxious. Affect is congruent. Thoughts are linear and logical. No evidence of psychosis. Client Response/Progress/Benefit: [] Pt was an active participant AEB pt providing input and listening attentively to peers. Attentive during psychoeducation on mindfulness coping skills, body-based coping skills, and mind-based coping skills and their impact on reducing anxiety and improving overall mental health wellness. Group was able to identify self-soothing and mind-based coping skills which included: 5-senses, meditation, deep breathing, walking/exercise, music, engaging with others, opposite-action, and affirmations. Pt verbalized skill to make effort to use this week as: deep breathing and brain games. Pt will continue IOP to prevent decompensation, maintain safety, increase healthy coping, and improve functioning. Narrative Note: []
--- NOTE | 2025-06-25 09:00 | BH.SGPN.GN ---
Behaviors/Verbalizations/Mental Status: [] Pt alert and oriented, Neatly dressed and groomed. Eye contact good. Motor activity appropriate. Speech within normal limits. Affect congruent, mood anxious. Thoughts linear, logical, no signs of hallucinations or delusions. Reviewed pt?s symptom tracker today, denies suicidal ideation, plan, and intent.06/25/25. Client Response/Progress/Benefit: []Pt was an active participant in group discussions. Attentive. Per patients daily symptom tracker, pt indicates a 0/5 for depression and a 3/5 for anxiety, with 5 being severe. Pt's mental health win was having a weekend with very little to no anxiety symptoms. Pt stated that the weekend was relaxing and spent doing things he enjoyed, which potentially caused a decrease in anxiety. Pt's second win was that due to the lessened anxiety, he was able to be productive and get a lot done. Pt's stressor was a resurgence of anxiety symptoms on Wednesday. Pt reported feeling more anxious than usual and was unsure why. Pt stated that he was able to use some coping mechanisms to combat anxiety. Pt was supportive and attentive to others in the group. Pt seemed to benefit from support from peers. Will continue IOP tx to promote healthy coping mechanisms, improve confidence, and prevent decompensation.
--- NOTE | 2025-06-25 10:10 | BH.SGPN.GN ---
Behaviors/Verbalizations/Mental Status: []Pt alert and oriented, neatly dressed and groomed. Eye contact fair. Motor activity appropriate. Speech within normal limits. Affect constricted, mood anxious. Thoughts linear, logical, no signs of hallucinations or delusions Client Response/Progress/Benefit: []Pt took notes and contributed to group discussions. Attentive during psychoeducation on growth mindset. Interactive group discussion on fixed mindset in which group verbalized their current fixed mindsets and how they affect their mental health. Pt shared common fixed mindset thoughts they have. Pt shared a personal fixed thought There is no point in stetting goals I won't reach them.? Pt able to connect negative impact fixed thoughts have on functioning. Pt benefited from increased awareness of growth mindset and fixed thoughts and how fixed thoughts impact their mental health. Will continue IOP tx to improve healthy coping skills, challenge distortions, and prevent decompensation.
--- NOTE | 2025-06-25 11:10 | BH.SGPN.GN ---
Behaviors/Verbalizations/Mental Status: []Pt alert and oriented, neatly dressed and groomed. Eye contact good. Motor activity appropriate. Speech within normal limits. Affect congruent, mood agitated. Thoughts linear, logical, no signs of hallucinations or delusions. Client Response/Progress/Benefit: [] Pt was an active participant during activity and discussion. Pt did well to remain attentive and participate as group worked on identifying characteristics and benefits of adopting a growth mindset. Worked with fellow participants in reframing the example fixed thoughts into growth mindset thoughts. Pt worked on changing own fixed thought. Pt?s reframed thought was ?I can face challenges and come out a better person.? Pt attentive during discussion about different strategies that can help with fostering a growth mindset. Pt appeared to benefit from challenging own thoughts and engaging in the activity. Pt will continue IOP tx to increase distress tolerance, improve self-confidence, and reduce avoidance behaviors. Narrative Note: []
--- NOTE | 2025-06-26 10:15 | BH.SGPN.GN ---
Behaviors/Verbalizations/Mental Status: []Eye contact is fair. Motor activity is appropriate. Appearance is neat. Speech is Appropriate. Mood is content. Affect is congruent. Thoughts are linear and logical. No evidence of psychosis. Client Response/Progress/Benefit: [] Pt was an active participant in group discussions. Attentive during psychoeducation on the 4 communication styles (Passive, Passive-Aggressive, Aggressive, and Assertive) and the obstacles to effective communication. Contributed during interactive discussion on the benefits of communicating effectively. Worked well with peers to identify the benefits and disadvantages to the different communication styles. Pt believes that they are primarily passive because they fear conflict. Benefited from increased understanding of communication styles and how these can impact effective communication. Will continue in IOP to reduce avoidance behaviors, improve daily functioning, and gain healthy coping skills. ? Narrative Note: []
--- NOTE | 2025-06-26 11:10 | BH.SGPN.GN ---
Behaviors/Verbalizations/Mental Status: []Pt alert and oriented, casually dressed and appropriately groomed. Eye contact fair. Motor activity calm. Speech within normal limits. Affect congruent, mood anxious. Thoughts linear, logical, no signs of hallucinations or delusions. Client Response/Progress/Benefit: [] Pt responded well to session AEB Pt listening attentively to others and providing input during group discussion on the pay offs and costs of the different communication styles. Pt able to connect how current communication style impacts mental health. Connected with peers? comments about the importance of using assertive communication. Pt seemed to benefit from increasing awareness of healthy strategies to improve communication. Pt stated he would like to work on being more assertive with his boundaries because his strong fear of conflict keeps him from verbalizing his needs or opinions. Will continue IOP tx to prevent decompensation, decrease anxious avoidance, and build confidence.
--- NOTE | 2025-06-28 09:00 | BH.SGPN.GN ---
Behaviors/Verbalizations/Mental Status: [] Eye contact is good. Motor activity is appropriate. Appearance is casual. Speech is Appropriate. Mood is anxious. Affect is congruent. Thoughts are linear and logical. No evidence of psychosis. Reviewed daily check in sheet and no reports of suicidal ideations Client Response/Progress/Benefit: [] Pt participated when prompted. Attentive. Pt shared several mental health wins and healthy habits. He recently set boundaries with certain supports, practived effective communication, and was able to implement skills to minimize panic and negative automatic thoughts regarding somatic concerns. Progress noted. Benefited from group support, encouragement, and feedback. Will continue in IOP to prevent decompensation, decrease intrusive thoughts, and increase healthy coping. Narrative Note: []
--- NOTE | 2025-06-28 13:14 | BH.MDN_ITS ---
Multi-Disciplinary Note Note 60-min Individual: Time Started:: 10:30 Date: 06/28/25 Purpose of session/treatment goals addressed:: To work on negative thinking patterns that are impacting pt's mood stability and confidence. Eye Contact:: Fair Motor Activity:: Appropriate Appearance:: Neat Speech:: Appropriate Mood:: Anxious Affect:: Constricted Thoughts:: Linear, Logical and No evidence of hallucinations/delusions noted Staff Interventions:: thought challenging, CBT techniques, mindfulness skills (practiced calming skills ), strengths perspective, taught coping skills and other (crucial conversations) Client Response:: Pt responded well to session, open to meeting with therapist. Pt reports he has been struggling lately. Pt shared he continues to feel anxious more at night and he is feeling frustrated about that. Pt stated I know I'm making progress, but it feels like I'm not making enough. Pt noted that his anxiety about food has been worsening recently as well. Pt connected with the cycle of being anxious about eating, so he gets physical symptoms, which leads to not wanting to eat. Pt also noted that he has safe foods that he has been eating for the last several weeks and he does not stray from these foods due to fear of getting sick. Pt also avoids eating places outside of spaces that feel comfortable, so we discussed doing exposure therapy next session. Pt identified a safe food to eat in session-pretzels. Discussed calming strategies pt can use to help manage physical symptoms of anxiety. Rehearsed self-soothing skills during session and pt reported the calming skills with sound helped him best. Pt noted that he struggles most with the tightness in his throat and nausea. Pt shared the calming skills helped with this. Pt also stated he has been struggling with resentment, anxiety, and fear about the future with his . Pt shared he fears that they will not be able to come to a compromise about the cat. Pt stated that he has been told some hurtful messages surrounding the situation with the cat which has triggered negative self-talk. Discussed having a crucial conversation and pt was receptive sharing I think I've been avoiding this talk for a while. Pt recognizes that he and his have stre ngths in their relationship that pt can remind himself of to combat his anxiety. Pt reported he also benefitted from normalizing his feelings about the cat. Risks/Concerns:: Pt denies any suicidal ideation, plan, or intent. Pt denies any thoughts of . Progress Toward Goals/Plan:: Pt has been making progress towards his tx goals AEB his report of using healthy coping skills outside of IOP and report of seeing progress in some areas of functioning. However, pt has been struggling with lack of self-confidence, negative self-talk, frustration, and anxiety about his relationship. Pt reports feeling more anxiety around eating as well and pt is receptive to working on exposure goals during session next week. Pt will continue IOP tx to prevent decompensation, increase distress tolerance skills, and reduce negative thinking patterns. Time Stopped:: 11:25
--- NOTE | 2025-06-29 15:01 | BH.MTP_ITS ---
Treatment Plan Review Demographics Date of Admission:: 06/05/25 Date of Treatment Plan Review:: 06/29/25 Admitting Diagnoses:: NICOLE F41.1 Current Diagnoses:: NICOLE F41.1 Patient Status Patient's Response to Treatment:: Pt has responded well to session AEB consistently attending IOP and engaging in both individual and group therapy sessions. Pt consistently completes homework provided from individual couns julita. Pt contributes actively during group discussions, takes notes, appears to listen to others, and engages in group activities. Pt's overall DSM-5 scores have decreased by 40% since admission and pt reports he is feeling more capable most of the time with managing his anxiety. Pt has been able to function better at work, but his anxiety is still high at home. Status of Current Problems and Symptoms: Pt continues to report symptoms of anxiety that impact his overall functioning. Pt reports anxiety is still higher at night and he continues to experience a spike of anxiety around eating and the cat. Pt has also gained insight that he has low self-confidence and how his passive communication style has negatively impacted him. Pt is working on being more vulnerable when talking with his and being more assertive. Pt's marriage is both a positive and a source of stress per his report. Progress Problem #1: Problem Name:: Anxiety, panic, avoidance Status of Goals:: Objective 1- in progress. Pt is currently working on his fear ladder and sets weekly goals. Pt has been working on being around his cat without distraction, eating before he takes his medication, and engaging in less avoidance in general. Objective 2- in progress. Pt's DMS-5 scores for anxiety have decreased by 33% since admission. Pt can benefit from further reducing this as his anxiety still impacts him most days. Team Recommendations:: Treatment team encourages pt to continue working on distress tolerance skills, reducing avoidance behaviors, grounding skills, and tracking progress.
== END 2025-06-29 23:59 ==
LOC: BHIOP 08:00
PROVIDERS: PCP Registered Nurse; Referring Provider Student in an Organized Health Care Education/Training Program; Visit Provider Student in an Organized Health Care Education/Training Program
DX: F41.1 Generalized anxiety disorder (principal)
CPT/HCPCS: S9480; 90832; 90834; 90837; 90853

== ENCOUNTER 2025-07-02 08:34 | Outpatient (RCR) | payer BC, SELFPAY ==
--- NOTE | 2025-07-03 09:00 | BH.SGPN.GN ---
Behaviors/Verbalizations/Mental Status: [] Pt alert and oriented, Neatly dressed and groomed. Eye contact good. Motor activity appropriate. Speech within normal limits. Affect congruent, mood anxious. Thoughts linear, logical, no signs of hallucinations or delusions. Reviewed pt?s symptom tracker today, denies suicidal ideation, plan, and intent.07/03/25. Client Response/Progress/Benefit: []Pt was an active participant in group discussions. Attentive. Per patients daily symptom tracker, pt indicates a 0/5 for depression and a 3/5 for anxiety, with 5 being severe. Pt's mental health win was deep cleaning his kitchen making him feel more productive. His other mental health win was managing his anxiety during a difficult work call in which he was not able to take many breaks. Pt reported feeling stressed and anxious, but was able to cope with these feelings instead of panicking. Pt's stressor was that the work call did not resolve the issue, so he is still dealing with it at work. Pt was supportive and attentive to others in the group. Pt seemed to benefit from support from peers. Will continue IOP tx to promote healthy coping mechanisms, reduce negative thinking patterns, and prevent decompensation.
--- NOTE | 2025-07-03 10:05 | BH.SGPN.GN ---
Behaviors/Verbalizations/Mental Status: [] Eye contact is good. Motor activity is appropriate. Appearance is casual. Speech is Appropriate. Mood is anxious. Affect is congruent. Thoughts are linear and logical. No evidence of psychosis Client Response/Progress/Benefit: [] Pt was an active participant during group discussions and group activities. This portion of group was very psychoeducation heavy and pt was attentive during psychoeducation. Engaged during activity in which they identified which type of foods (i.e. carbs, sugar, salt, fast food, caffeine, etc) they seek out when sad, tired, angry, stressed, anxious, etc. Pt was able to identify the impact that certain foods have on their mental health through group example which was beneficial. Benefited from increased awareness of the connection between nutrition and mental health. Will continue in IOP to prevent decompensation, decrease intrusive thoughts, stablize anxiety, increase healthy coping, and improve functioning. Narrative Note: []
--- NOTE | 2025-07-03 11:10 | BH.SGPN.GN ---
Behaviors/Verbalizations/Mental Status: []Pt alert and oriented, neatly dressed and groomed. Eye contact good. Motor activity appropriate. Speech within normal limits. Affect congruent, mood agitated. Thoughts linear, logical, no signs of hallucinations or delusions. Client Response/Progress/Benefit: [] Pt was an active participant during group discussions and group activities. This portion of group was very psychoeducation heavy and pt was attentive during psychoeducation. Engaged during activity in which they identified their own maintenance cycles with food and how it impacts their mental health symptoms. Pt and peers identified barriers to breaking these cycles as well as ways to combat barriers. Pt stated he wants to work on eating when he feels anxious as pt?s appetite goes away when he is stressed. Benefited from increased awareness of the connection between nutrition and mental health and from identifying strategies. Will continue in IOP to improve distress tolerance skills, improve self-confidence, and reduce avoidance. Narrative Note: []
--- NOTE | 2025-07-05 09:00 | BH.SGPN.GN ---
Behaviors/Verbalizations/Mental Status: [] Pt alert and oriented, Neatly dressed and groomed. Eye contact fair. Motor activity appropriate. Speech within normal limits. Affect congruent, mood calm. Thoughts linear, logical, no signs of hallucinations or delusions.Reviewed pt?s symptom tracker today, denies suicidal ideation, plan, and intent.07/05/25 Client Response/Progress/Benefit: []Pt was an active participant in group discussions. Attentive. Per patients daily symptom tracker, pt indicates a 0/5 for depression and a 2/5 for anxiety, with 5 being severe. Pt shared his mental health positive as fixing a problem as work that had been ongoing for a few days. This was a significant point of stress for pt, stating that is was causing him anxiety. Pt's second mental health positive was spending two hours around the pet cat, which was a severe point of anxiety. Client reported not enjoying being around the cat, but was able to handle it without extreme anxiety for two hours. Pt stated that he utilized some coping skills to help with anxiety around the cat. Pt's stressor is handling stress with work. Pt seemed to benefit from support from peers. Will continue IOP tx to promote healthy coping mechanisms, decrease negative thinking patterns and prevent decompensation.
--- NOTE | 2025-07-05 10:00 | BH.SGPN.GN ---
Behaviors/Verbalizations/Mental Status: [] Eye contact is good. Motor activity is appropriate. Appearance is casual. Speech is Appropriate. Mood is anxious. Affect is congruent. Thoughts are linear and logical. No evidence of psychosis. Client Response/Progress/Benefit: [] Pt was attentive during group AEB client listening attentively to peers. Limited participation in group discussions. Attentive as group worked on defining?self-confidence?and identifying benefits of?self-confidence which included; increased self-esteem, improved relationships, increased resilience, better adaptive coping, stronger boundaries, helps us try new tasks, decreased depression, more hopeful, and more creative. Also attentive during interactive discussion on factors that impact one's self confidence such as trauma, upbringing, economic status, and current/past relationships. Benefited from increased education on?self-confidence?and what effects it. Pt will continue IOP to prevent decompensation, increase healthy coping, and decrease intrusive thoughts. Narrative Note: []
--- NOTE | 2025-07-05 11:10 | BH.SGPN.GN ---
Behaviors/Verbalizations/Mental Status: [] Client alert and oriented, casually dressed and groomed. Eye contact good. Motor activity appropriate. Speech within normal limits. Affect congruent, mood anxious. Thoughts linear, logical, no signs of hallucinations or delusions. Client Response/Progress/Benefit: [] Pt engaged in session AEB client listening attentively to peers and providing input. Attentive and contributed to discussion as group worked on identifying thought patterns and behaviors that negatively effect self-confidence. Pt identified behaviors that effect their confidence as: self-judgement and fear of failure thoughts. Engaged in confidence building activity and worked with the group to identify strategies for improving self-confidence. Pt identified plans to begin trying to learn new things as a means of improving own self-confidence. Benefited from increased education on self-confidence building skills. Pt will continue IOP tx to increase self-confidence, improve emotional regulation skills, and prevent decompensation. Narrative Note: []
--- NOTE | 2025-07-06 07:46 | PCM.BH.PN ---
Intake Vital Signs 06/08/25 09:28 07/06/25 07:46 Height 5 ft 9 in 5 ft 9 in Intake Visit Reasons: follow up Allergies cephalexin (From Keflex) Adverse Reaction (Mild, Verified 06/08/25 09:18) Rash sulfamethoxazole (From Septra) Adverse Reaction (Unknown, Verified 06/08/25 09:18) Rash trimethoprim (From Septra) Adverse Reaction (Unknown, Verified 06/08/25 09:18) Rash Penicillins Adverse Reaction (Verified 06/08/25 09:18) Rash Medications ?Medication ?Instructions ?Recorded ?Confirmed ?Type clonazepam 0.5 mg tablet 0.5 mg PO QHS 06/08/25 06/08/25 History clonazepam 0.5 mg tablet (Klonopin) 0.5 mg PO DAILY PRN anxiety 06/08/25 06/08/25 History escitalopram oxalate 20 mg tablet 20 mg PO DAILY 06/08/25 06/08/25 History hydroxyzine pamoate 50 mg capsule 50 mg PO Q8H PRN PRN anxiety 06/08/25 06/08/25 History mirtazapine 7.5 mg tablet 7.5 mg PO BID 06/08/25 06/08/25 History buspirone 15 mg tablet 15 mg PO TID #90 tabs 07/06/25 Rx HPI () History of Present Illness History provided by: patient Chief complaint: anxiety HPI: Jericho Brown is a 29 year old male who presents today for follow up evaluation. Patient admits that his anxiety has been largely well controlled around the morning around when he takes buspirone, lexapro and mirtazapine and also around bedtime when he takes buspar, mirtazapine and clonazepam. Has had a few days where work has been stressful, however did not get the point of needing to use PRN clonazepam. Was able to step outside to relax. At home, still having some difficulty tolerating stress of having cat in his home, but it has been largely resigned to staying in the basement. wants to introduce the cat to the rest of the house, but patient does not. Still having some significant anxiety around food. Feels like eating is dramatically easier in morning or night, but still is overall difficult. Doesn't eat a large amount of different foods. Does incorporate protein shakes to try and help maintain nutrition. Does find that certain flavors are more anxiety inducing and harder to eat. Review of systems () Constitutional Denies: fever(s), chills, change in weight or fatigue Eyes Denies: change in vision or blurry vision Ears, Nose, Mouth, Throat Denies: throat pain, neck pain or change in hearing Cardiovascular Denies: chest pain, palpitations or dyspnea Respiratory Denies: dyspnea, cough or wheezing Gastrointestinal Reports: abdominal pain and nausea; Denies: vomiting or constipation Genitourinary Denies: dysuria or urinary frequency Musculoskeletal Denies: back pain, neck pain, joint pain or muscle weakness Integumentary/Breast Denies: rash or new lesions Neurological Reports: headache(s); Denies: dizziness or confusion Endocrine Denies: fatigue or excessive sweating Hematologic/Lymphatic Denies: easy bruising or easy bleeding Allergic/Immunologic Denies: wheezing Exam Mental Status Exam- Psych () Appearance casually dressed Attitude cooperative Activity/Motor Behavior MSE activity/motor behavior finding no adventitious movements Speech regular rate, regular volume and regular prosody Mood anxious Affect congruent Thought Process linear, logical and coherent Thought Content no delusions and no hallucinations Suicidal Ideation none Homicidal Ideation none Attention intact Concentration intact Sensorium/Orientation awake, alert and oriented x3 Memory/Cognition other (appropriate for stated age) Insight fair Judgement good Assessment & Plan () Assessment & Plan (1) NICOLE (generalized anxiety disorder): Plan: - somatic symptom disorder (?) - Change buspirone to 15 mg TID in an attempt to better control anxiety - consider only taking mirtazapine at bedtime as opposed to the BID dosing he is doing now Continue lexapro and mirtazapine as before Charges/Coding Multi Select Codes Behavior Health Behavior Health EST Pt E/M: [id number] Est Pt Level IV
--- NOTE | 2025-07-06 10:10 | BH.SGPN.GN ---
Behaviors/Verbalizations/Mental Status: [] Motor activity is appropriate. Appearance is casual. Speech is Appropriate. Mood is euthymic. Affect is full. Thoughts are linear and logical. No evidence of psychosis. Client Response/Progress/Benefit: [] Pt was an engaged participant AEB listening attentively to others, taking notes, and providing feedback in small group discussions. Attentive during psychoeducation AEB by note taking and providing some input. Pt worked along with peers in small groups to define inappropriate guilt and appropriate guilt. Interactive discussion on examples of both inappropriate and appropriate guilt. Pt able to connect impact inappropriate guilt can have on MH. Benefited from increased awareness of guilt and the differences between appropriate and inappropriate guilt. Pt to continue IOP tx to prevent decompensation, gain healthy coping skills, and increase functioning. Narrative Note: []
--- NOTE | 2025-07-06 10:26 | BH.MDN_ITS ---
Multi-Disciplinary Note Note 45-min Individual: Time Started:: 09:05 Date: 07/06/25 Purpose of session/treatment goals addressed:: To review homework/progress and to work on exposure goal for the week. Eye Contact:: Good Motor Activity:: Appropriate Appearance:: Neat Speech:: Appropriate Mood:: Euthymic and Anxious Affect:: Congruent Thoughts:: Linear, Logical and No evidence of hallucinations/delusions noted Staff Interventions:: thought challenging, CBT techniques, mindfulness ski lls, strengths perspective, goal setting (exposure go for homework) and other (worked on eating exposure goal in session) Client Response:: Pt responded well to session, open to meeting with therapist. Pt reports he has been doing pretty good he shared that most days he is managing his anxiety better, using skills, and building his distress tolerance. Pt gave examples with work recently where pt was able to manage stressors without shutting down or getting panicked. Pt noted that he had a conversation with his about expectations around the cat and pt felt it went well, but the last two days pt felt she pushed the boundary again. Pt stated that he got a spike of anxiety but he took a break and felt like that helped. However, pt shared he feels like he will need to have more conversations with his about the expectations around the cat as well as how she talks to pt. Pt expressed that he has been feeling somewhat down and pressured because when his if frustrated her filter leaves. Pt stated that she has a history of saying hurtful things to pt and then apologizing, but the things are still said. Pt wants to tell her how this impacts his view of self as well as his progress. Pt will do this for homework. Pt engaged in exposure during session, eating pretzels. Pt did well and he reported mild anxiety and shared when he takes his medications he feels less anxiety about food and what might happen if he eats. Pt's exposure goal for the week is to eat before he takes his medications to help pt gain new evidence that he will be okay before taking medication. Risks/Concerns:: Pt denies any suicidal ideation, plan, or intent. Pt denies any thoughts of . Progress Toward Goals/Plan:: Pt has been making progress towards his tx goals AEB his report of using healthy coping skills outside of IOP and report of seeing progress in his ability to manage work stress. Pt also noted benefitting from him medication and from having conversations with his . However, pt has been struggling with lack of self-confidence, ongoing low appetite, and relationship stress. Pt did well with his exposure in session today. Pt will continue IOP tx to promote mood stability, increase distress tolerance skills, and reduce negative thinking patterns. Time Stopped:: 09:40
--- NOTE | 2025-07-06 11:10 | BH.SGPN.GN ---
Behaviors/Verbalizations/Mental Status: [] Pt alert and oriented, casually dressed and groomed. Eye contact good. Motor activity appropriate. Speech within normal limits. Affect congruent, mood euthymic. Thoughts linear, logical, no signs of hallucinations or delusions. Client Response/Progress/Benefit: [] Pt was an engaged participant AEB listening attentively to others and providing input throughout group. Pt worked within their small group to identify strategies to manage inappropriate guilt. Identified a personal example of inappropriate guilt as ?feeling guilting for stating opinion.? Pt wants to work on combatting inappropriate guilt by ?self reflection on why feeling guilty.? Pt seemed to benefit from learning about strategies to manage appropriate and inappropriate guilt. Pt to continue IOP tx to prevent decompensation, gain healthy coping skills, and increase self-confidence. Narrative Note: []
--- NOTE | 2025-07-10 10:10 | BH.SGPN.GN ---
Behaviors/Verbalizations/Mental Status: []Pt alert and oriented, neatly dressed and groomed. Eye contact good. Motor activity appropriate. Speech within normal limits. Affect congruent, mood euthymic. Thoughts linear, logical, no signs of hallucinations or delusions. Client Response/Progress/Benefit: [] Pt responded well to session AEB contributing to discussion, taking notes, and listening attentively to others. Group discussed the benefits of managed anger and anger as a secondary emotion. Pt participated in discussions on anger triggers and responses. Group reported outward personal signs of anger as lashing out verbally, crying, and being impulsive. Group Identified examples of anger cycles and as well the emotions that contribute to anger. Appeared to benefit from increased knowledge of the underlying emotions that impact anger and increased self-awareness of the internal and external consequences of anger. Pt will continue IOP tx to further reduce intensity of anxiety and increase self-confidence. ?? Narrative Note: []
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
--- NOTE | 2025-07-10 11:10 | BH.SGPN.GN ---
Behaviors/Verbalizations/Mental Status: [] client alert and oriented, casually dressed and groomed. Eye contact good. Motor activity appropriate. Speech within normal limits. Affect congruent, mood euthymic. Thoughts linear, logical, no signs of hallucinations or delusions. Client Response/Progress/Benefit: [] Client was an engaged participant throughout group AEB client providing input throughout discussion. Client contributed to the continued discussion of how people express anger as well as the underlying emotions of anger. Client participated in group activity that highlighted strategies to cope with anger. Group brainstormed healthy coping skills to help prevent anger and cope with it in the moment which included: mindfulness, deep breathing, journaling, going outside, and music. Client reflected on what skills would like to practice. Client appeared to benefit from brainstorming with the group potential strategies to manage anger in healthy ways. Recommended continued IOP to promote healthy coping, challenge distorted thoughts, and prevent decompensation.
--- NOTE | 2025-07-11 09:05 | BH.SGPN.GN ---
Behaviors/Verbalizations/Mental Status: []Eye contact is good. Motor activity is appropriate. Appearance is casual. Speech is Appropriate. Mood is dysthymic. Affect is congruent. Thoughts are linear and logical. No evidence of psychosis. Reviewed daily check in sheet and pt denies SI, plan, or intent as of this date 07/11/25. Client Response/Progress/Benefit: [] Pt was an active participant in group discussions. Attentive. Did well to identify 2 mental health wins, which included being able to complete a lot of food prepping with his for the winter. Additional win noted as making progress with deep cleaning the bathrooms and using this as a healthy distraction for him. Stressor noted as anxiety regarding an upcoming surgery, but is doing well to create a post-op care plan for himself. Appeared to benefit from provided support, encouragement, and feedback. Will continue IOP tx to improve mood stability, develop healthy coping repertoire, and prevent decompensation. Narrative Note: []
--- NOTE | 2025-07-11 10:10 | BH.SGPN.GN ---
Behaviors/Verbalizations/Mental Status: []Pt alert and oriented. Casually dressed and groomed, eye contact good. Motor activity appropriate. Speech within normal limits. Affect congruent. Mood calm. Thoughts linear, logical, no signs of hallucinations or delusions. Client Response/Progress/Benefit: [] Pt was an active participant, taking notes and engaging in group discussion and activity. Connected with the topic of pitfalls and participated in group discussion about barriers that prevent from choosing a healthier path to mental wellness. Pt participated in discussion on pitfalls, what they are, and ways that we stay stuck in them. Group worked together to identify examples of internal and external pitfalls, including depression, isolation, and anxiety. Pt benefited from group and psychoeducation on pitfalls as pt learned to better identity potential barriers to improving mental health symptoms. Pt was an active participant in activity meant to demonstrate pitfalls and how to cope with them. Pt will continue IOP tx decrease negative thinking patterns, improve daily functioning, and prevent decompensation.
--- NOTE | 2025-07-11 10:10 | BH.SGPN.GN ---
Behaviors/Verbalizations/Mental Status: []Pt alert and oriented, casually dressed and groomed. Eye contact good. Motor activity appropriate. Speech within normal limits. Affect congruent, mood euthymic. Thoughts linear, logical, no signs of hallucinations or delusions. Client Response/Progress/Benefit: [] Pt was an active participant AEB taking notes and engaging in group activity. Connected with the topic of pitfalls and listened to group discussion on barriers that prevent from choosing a healthier path to mental wellness. Group worked together to identify examples of personal pitfalls. These examples included; having unrealistic expectations, not trusting, not asking for help, and shutting down. Pt benefited from group as pt learned to better identify potential barriers to improving mental health symptoms. Pt will continue IOP tx to challenge negative thoughts, decrease anxious avoidance, and prevent decompensation.
--- NOTE | 2025-07-11 11:10 | BH.SGPN.GN ---
Behaviors/Verbalizations/Mental Status: []Client alert and oriented, casually dressed and groomed. Eye contact good. Motor activity appropriate. Speech within normal limits. Affect congruent, mood content. Thoughts linear, logical, no signs of hallucinations or delusions. Client Response/Progress/Benefit: [] Pt receptive of session, engaged throughout AEB Pt actively listening and contributing to discussion as well as taking notes.? Pt participated in the experiential activity and did well to communicate ideas with peers and manage emotions. Pt attentive as group processed how the emotions and perspective of the group impacted the activity. Pt was highly encouraging during the activity which helped peers. Group worked together to identify different coping skills to help manage pitfalls. Pt identified pitfalls they struggle with as not setting goals, avoidance, and ?letting feelings build.? Pt plans to work on their pitfall by ?opposite action.? Benefited from identifying personal pitfalls and strategies to overcome these pitfalls. Pt will continue IOP tx to increase self-confidence, reduce avoidance, and reinforce use of healthy coping skills. ??? Narrative Note: []
--- NOTE | 2025-07-12 09:00 | BH.SGPN.GN ---
Behaviors/Verbalizations/Mental Status: [] Eye contact is good. Motor activity is appropriate. Appearance is casual. Speech is Appropriate. Mood is euthymic. Affect is full. Thoughts are linear and logical. No evidence of psychosis. Reviewed daily check in sheet and no reports of suicidal ideations Client Response/Progress/Benefit: [] Pt participated when prompted. Attentive. Daily symptom tracker notes 2/5 for anxiety. Able to identify mental health wins and healthy habits. Shared mental health wins from yesterday. Expressed anxiety and intrusive thoughts surrounding food, however, did not elaborate much further. Progress noted. Benefited from group support, encouragement, and feedback. Will continue in IOP to prevent decompensation, stabilize mood, and improve functioning. Narrative Note: []
--- NOTE | 2025-07-12 10:15 | BH.SGPN.GN ---
Behaviors/Verbalizations/Mental Status: []Pt alert and oriented, neatly dressed and groomed. Eye contact good. Motor activity appropriate. Speech within normal limits. Affect congruent, mood euthymic. Thoughts linear, logical, no signs of hallucinations or delusions. Client Response/Progress/Benefit: [] Pt responded well to session, contributing to discussion and engaged during the activity. Group identified the benefits of change which included: increased confidence, progressing towards goals, and improving mental and physical health. Worked with the group to identify barriers to change, which included: uncomfortable emotions such as anxiety, lack of energy, lack of support, and fear of the unknown. Pt participated along with group in activity where they identified and discussed the emotions related to change. Benefited from increased awareness and understanding of emotions, benefits, and barriers related to change. Will continue IOP tx to reinforce healthy coping skills, further reduce avoidance, and improve self-confidence. ? Narrative Note: []
--- NOTE | 2025-07-12 11:10 | BH.SGPN.GN ---
Behaviors/Verbalizations/Mental Status: []Client alert and oriented, casually dressed and groomed. Eye contact fair. Motor activity appropriate. Speech within normal limits. Affect congruent, mood anxious. Thoughts linear, logical, no signs of hallucinations or delusions Client Response/Progress/Benefit: [] Pt responded well to session, attentive. Engaged in psychoeducation and discussion about finishing the stages of change. Did well to process activity and work with group to relate the strategies used to overcome barriers in the activity to managing change in own life. Pt identified a change they would like to make is to start eating meals again. Pt identified currently being in action stage for this change. Pt stated goal is to continue to start eating small meals each day. Appeared to benefit from identifying a small goal to work towards. Pt will continue IOP tx to prevent decompensation, challenge distorted thoughts, and decrease anxious avoidance.
--- NOTE | 2025-07-17 10:10 | BH.SGPN.GN ---
Behaviors/Verbalizations/Mental Status: []Eye contact is good. Motor activity is appropriate. Appearance is casual. Speech is Appropriate. Mood is content. Affect is congruent. Thoughts are linear and logical. No evidence of psychosis. Client Response/Progress/Benefit: []Pt was an active participant in group discussion. Engaged and attentive during psychoeducation and interactive discussion on coping skills, why people use unhealthy coping skills, how to replace unhealthy coping skills, and internal vs external coping skills. Attentive as peers came up with list of unhealthy coping skills. Pt reported personally, they tend to either distract or control the situation. Group discussed the effects of maladaptive coping skills on mental health. Benefited from increased understanding of unhealthy coping skills and the need for developing healthy internal and external coping skills. Actively participated during experiential group activity and was able to related this activity to group topic. Will continue in IOP to promote healthy thinking patterns, apply healthy coping skills, and promote mood stability. Narrative Note: []
--- NOTE | 2025-07-17 11:10 | BH.SGPN.GN ---
Behaviors/Verbalizations/Mental Status: [] Client alert and oriented, neatly dressed and groomed. Eye contact fair to good. Motor activity appropriate. Speech within normal limits. Affect congruent, mood euthymic. Thoughts linear, logical, no signs of hallucinations or delusions. Client Response/Progress/Benefit: [] Client responded well to session AEB taking notes and providing input and examples throughout. Group discussed the different categories of coping skills which included distraction, emotional release, grounding, self-love, and access to greater self, and thought challenging. Client created a coping skill menu identifying various skills to try in each category. Client?s coping skill menu included: walking, journaling, meditation, positive affirmations, identify and reframe distortions, and reflection. Appeared to benefit from increasing repertoire of healthy coping skills. Client reports feeling less depressed, but client has yet to see consistent mood stability for over two weeks. Client will continue IOP tx to improve daily functioning, reduce negative thinking, and increase application of healthy coping skills. Narrative Note: []
--- NOTE | 2025-07-17 13:31 | BH.MDN_ITS ---
Multi-Disciplinary Note Note 60-min Individual: Time Started:: 09:03 Date: 07/17/25 Purpose of session/treatment goals addressed:: To check in with client while primary therapist is out and review progress towards goals. Eye Contact:: Good Motor Activity:: Appropriate Appearance:: Neat Speech:: Appropriate Mood:: Euthymic and Anxious Affect:: Congruent Thoughts:: Linear Staff Interventions:: thought challenging, mindfulness skills and strengths perspective Client Response:: Client open to meeting with this therapist while primary therapist is out. Client indicated he was doing okay and the weekend went well. Client discussed goal set in prior session of cooking a meal. Client indicated making pork fried rice and [employer] chicken. Client reported his eating is still not great and that he was able to eat the meals, but had some stomach discomfort after eating the chicken. Client reported eating a breakfast sandwich this morning and is trying to get three meals in. Client went on to share that he only feels hungry and relaxed at end of the day due to medication. Client shared fears surrounding around Thanksgiving and the pressure to eat at both meals that day. Client worries about family members pointing out if he is not eating enough which result in increased anticipatory anxiety surrounding that day. Client receptive to discussing with family prior to Thanksgiving on uncomfortable feelings when they ask him about his eating habits. Client shared that him and his came to a conclusion with their cat permanently staying in the basement and to compromise, he agreed to make the basement a more comfortable space to spend time in. Client indicated that I got what I needed with final decision regarding the cat. Client shared that communication with his is improving, however, told I feel like I'm walking on eggshells when there is conflict. Client recognized different styles of communication from learned experiences with client growing up in a low conflict quiet household and grew up around more yelling and emotion. Client reminds himself that tends to get emotional at first with conflict, but usually takes a bit to calm down and talk about things later. Overall with general anxiety, client feels he experiences it a lot, but can't currently pinpoint what is the direct cause at this moment. He went on to share that with being in IOP he feels he doesn't have a good enough reason to be anxious compared to others due to him having all his basic needs met while there are other people that do not. Client struggled with discussion around self worth and how client views himself, client agreed to reflect on it to discuss with primary therapist at next session. Risks/Concerns:: Pt denies any active suicidal ideation, plan, or intent. Pt denies any thoughts of . Progress Toward Goals/Plan:: Progress noted with client reporting improved communication with and noticeable positive changes with taking medication. Client accomplished goals of cooking new meal set in last session. Client reports continuing anxiety for majority of the day. Client will continue IOP tx to prevent decompensation, improve daily functioning, and further increase self- confidence. Time Stopped:: 09:58
--- NOTE | 2025-07-19 09:00 | BH.SGPN.GN ---
Behaviors/Verbalizations/Mental Status: [] Pt alert and oriented, Neatly dressed and groomed. Eye contact good. Motor activity appropriate. Speech within normal limits. Affect congruent, mood calm. Thoughts linear, logical, no signs of hallucinations or delusions. Reviewed pt?s symptom tracker today, denies suicidal ideation, plan, and intent.07/19/25 Client Response/Progress/Benefit: []Pt was an active participant in group discussions. Attentive. Per patients daily symptom tracker, pt indicates a 0/5 for depression and a 2/5 for anxiety, with 5 being severe. Pt shared his mental health positive as having a consultation with an outpatient therapist to continue getting support after discharging from IOP. His other mental health win was getting some good news at work, which pt stated takes some pressure off of his shoulders. Pt's stressor was feeling anxious about eating at Thanksgiving, stating that he is nervous that people are going to ask questions about how much he eats. Pt stated that he has come up with some coping strategies to help combat anxiety with his individual therapist. Pt was supportive and attentive to others in the group. Pt seemed to benefit from support from peers. Will continue IOP tx to promote healthy coping mechanisms, decrease negative thinking patterns, and prevent decompensation.
--- NOTE | 2025-07-19 10:10 | BH.SGPN.GN ---
Behaviors/Verbalizations/Mental Status: [] Eye contact is good. Motor activity is appropriate. Appearance is casual. Speech is Appropriate. Mood is content. Affect is congruent. Thoughts are linear and logical. No evidence of psychosis. Client Response/Progress/Benefit: [] Pt engaged in session AEB listening attentively to others and providing input throughout. Pt engaged in activity, able to connect how it can be uncomfortable and difficult to practice acceptance when situations are out of one?s own control. Identified what they are struggling to accept in personal life. Worked with peer group to define acceptance and identify the benefits that acceptance can bring. Benefits included; reduced anger, self forgiveness, moving forward, and improved mental health. Seemed to benefit from increased awareness of the meaning as well as the importance of acceptance. Will continue in IOP to improve emotion regulation, challenge distortions, and prevent decompensation. Narrative Note: []
--- NOTE | 2025-07-19 11:15 | BH.SGPN.GN ---
Behaviors/Verbalizations/Mental Status: [] Pt alert and oriented, casually dressed and groomed. Eye contact good. Motor activity appropriate. Speech within normal limits. Affect congruent, mood euthymic. Thoughts linear, logical, no signs of hallucinations or delusions. Client Response/Progress/Benefit: [] Pt responded well to session AEB taking notes and contributing to discussion throughout. Pt engaged as group continued discussion on acceptance and the mental health benefits of practicing acceptance. Pt and peers identified what makes acceptance challenging and pt completed a self-reflection exercise on what is hard to accept in pt's life. Group identified strategies to increase acceptance. Pt noted wanting to work on ?setting realistic goals ad figuring out what's in my control vs not my control? as a strategy for improving acceptance. Pt appeared to benefit from gaining insight and learning strategies to increase acceptance. Pt will continue IOP tx to promote mood stability, reinforce healthy coping skills, and combat distortions. Narrative Note: []
--- NOTE | 2025-07-20 09:00 | BH.SGPN.GN ---
Behaviors/Verbalizations/Mental Status: [] Pt alert and oriented, Neatly dressed and groomed. Eye contact good. Motor activity appropriate. Speech within normal limits. Affect congruent, mood anxious. Thoughts linear, logical, no signs of hallucinations or delusions. Reviewed pt?s symptom tracker today, denies suicidal ideation, plan, and intent.07/20/25 Client Response/Progress/Benefit: []Pt was an active participant in group discussions. Attentive. Per patients daily symptom tracker, pt indicates a 0/5 for depression and a 2/5 for anxiety, with 5 being severe. Pt's first mental health win was getting an appointment with an outpatient therapist for continued support after discharging from IOP next week. Pt also reported getting consistent appointments with his psychologist after ending IOP. Pt's other mental health positive was being able to eat dinner without anxiety for the past couple of days. Pt stated that he typically feels nervous about feeling sick after eating, which causes him distress around food. Pt's stressor was discharging from the program next week. He reported that he has support lined up in, such as an outpatient therapist to help with the transition. Pt was supportive and attentive to others in the group. Pt seemed to benefit from support from peers. Will continue IOP tx to promote healthy coping mechanisms, decrease negative thinking patterns, and prevent decompensation.
--- NOTE | 2025-07-20 10:10 | BH.SGPN.GN ---
Behaviors/Verbalizations/Mental Status: [] Pt alert and oriented, casually dressed and groomed. Eye contact fair. Motor activity appropriate. Speech within normal limits. Affect full , mood euthymic, Thoughts linear, logical, no signs of hallucinations or delusions. Client Response/Progress/Benefit: [] Pt participated in group discussion. Group worked together to identify benefits of healthy relationships which included improves mental health, encouragement, motivation, accountability, validation, connection, someone to share experiences with, and support during challenges. Group identified factors that lead to unhealthy relationships which included trauma, lack of communication, and substance use. Benefited from increased insight and awareness of benefits of healthy relationships and factors that contribute to unhealthy relationships. Will continue in IOP to increase consistent use of healthy coping skills, challenge negative thoughts, and prevent decompensation. Narrative Note: []
--- NOTE | 2025-07-20 11:10 | BH.SGPN.GN ---
Behaviors/Verbalizations/Mental Status: [] Pt alert and oriented, casually dressed and groomed. Eye contact fair. Motor activity appropriate. Speech within normal limits. Affect full , mood euthymic, Thoughts linear, logical, no signs of hallucinations or delusions. Client Response/Progress/Benefit: [] Client responded well to session, engaged and taking notes throughout. Worked with group to connect components of the experiential activity with characteristics of healthy and unhealthy relationships. Attentive during psychoeducation about characteristics of healthy, unhealthy, and abusive relationships. Group member picked unhealthy and healthy attributes of an important relationship in their lives. Client reported they would like to continue to improve spending time with each other in their chosen relationship. Appeared to benefit from identifying current healthy relationship attributes and an area client wants to work on to build healthier relationships. Client to continue IOP to increase healthy coping skills and prevent decompensation. Narrative Note: []
--- NOTE | 2025-07-24 09:05 | BH.SGPN.GN ---
Behaviors/Verbalizations/Mental Status: [] Eye contact is good. Motor activity is appropriate. Appearance is casual. Speech is Appropriate. Mood is anxious. Affect is congruent. Thoughts are linear and logical. No evidence of psychosis. Reviewed daily check in sheet and no reports of suicidal ideations. Client Response/Progress/Benefit: [] Pt participated at times during the group discussions. Attentive. He shared with the group situational stressors which have cause mental health distress. Despite these stressors he was able to use cognitive restricting strategies to help minimize extended ruminations. He also reports being more vulnerable by communicating concerns with support which was beneficial. Progress noted. Benefited from group support ,encouragement, and feedback. Will continue in IOP to prevent decompensation, stabilize mood, and improve functioning. Narrative Note: []
--- NOTE | 2025-07-24 10:15 | BH.SGPN.GN ---
Behaviors/Verbalizations/Mental Status: []Pt alert and oriented, neatly dressed and groomed. Eye contact good. Motor activity appropriate. Speech within normal limits. Affect constricted, mood euthymic. Thoughts linear, logical, no signs of hallucinations or delusions. Client Response/Progress/Benefit: [] Pt engaged in session AEB client listening attentively to peers and providing input. Attentive and contributed to discussion as group worked on defining self-forgiveness and identifying mental health benefit. Identified benefits as: reduce guilt/shame, increase self-confidence, decrease negative self-talk, healthier relationships, ect. ?Worked in small groups to identify factors that can make self-forgiveness difficult. Pt identified a personal barrier to self-forgiveness including ?impatience.? Benefited from increased education on self-forgiveness, benefits, and what effects it. Pt will continue IOP tx to reinforce healthy coping skills, improve daily functioning, and establish aftercare. Narrative Note: []
--- NOTE | 2025-07-24 11:15 | BH.SGPN.GN ---
Behaviors/Verbalizations/Mental Status: [] Client alert and oriented, casually dressed and groomed. Eye contact good. Motor activity appropriate. Speech within normal limits. Affect congruent, mood content. Thoughts linear, logical, no signs of hallucinations or delusions. Client Response/Progress/Benefit: [] Pt engaged in session AEB client listening attentively to peers and providing input. Attentive during psychoeducation on the 4 R?s of Self-Forgiveness (Responsibility, Remorse, Anabaptist, Renewal). Contributed to discussion as group worked on identifying strategies for improving ability to practice self-forgiveness. Reports wanting to practice thought challenging and reaching out out to supports. Engaged in self-forgiveness activity and benefited from increased education on self-forgiveness building skills. Pt will continue IOP tx to improve mood stability, increase self-compassion, and prevent decompensation. Narrative Note: []
--- NOTE | 2025-07-25 09:00 | BH.SGPN.GN ---
Behaviors/Verbalizations/Mental Status: []Pt alert and oriented, casually dressed and groomed. Eye contact good. Motor activity appropriate. Speech within normal limits. Affect constricted, mood agitated. Thoughts linear, logical, no signs of hallucinations or delusions. Reviewed pt?s symptom tracker, no risk for suicidal ideation, plan, or intent 07/25/25. Client Response/Progress/Benefit: []Pt was an active participant in group discussions. Attentive. Able to identify mental health wins including feeling more capable in accomplishing tasks that once were highly stressful for pt. Pt also noted that his grandpa had surgery, but he is doing well now which is positive. Pt's stressor today is ?I?m almost done with IOP and that?s kind of stressful.? The group offered pt suggests managing this stressor and emotional support which pt reported was helpful. Pt is feeling ?neutral? this morning. Pt receptive to feedback from peers. Benefited from group support, encouragement, and feedback. Progress noted. Pt will continue IOP tx to promote mood stability and reinforce healthy coping skills. ?? Narrative Note: []
--- NOTE | 2025-07-25 11:10 | BH.SGPN.GN ---
Behaviors/Verbalizations/Mental Status: []Pt alert and oriented, casually dressed and groomed. Eye contact fair. Motor activity appropriate. Speech within normal limits. Affect congruent, mood euthymic. Thoughts linear, logical, no signs of hallucinations or delusions. Client Response/Progress/Benefit: [] Pt engaged participant AEB participating in the activity, providing input during small group discussion, and listening attentively to others. Pt appeared to connect with discussion in the benefits of addressing mental health stigma which included: improved relationships, increased willingness to seek help, increased happiness, and improved confidence. Group brainstormed strategies to combat social and perceived stigma. Pt shared one thing pt can do to combat stigma is to being kinder to self and stop using labels. Appeared to benefit from increasing awareness of strategies to combat stigma. Pt is to continue IOP to decrease anxious thoughts, promote healthy coping, and prevent decompensation.
--- NOTE | 2025-07-25 11:31 | BH.MDN ---
Multi-Disciplinary Note Note 30-min Individual: Time Started:: 10:35 Date: 07/25/25 Purpose of session/treatment goals addressed:: To discuss and plan for discharge. Another goal was to review pt's progress while in IOP. Eye Contact:: Good Motor Activity:: Appropriate Appearance:: Neat Speech:: Appropriate and Soft Mood:: Euthymic Affect:: Full (smiling) Thoughts:: Linear, Logical and No evidence of hallucinations/delusions noted Staff Interventions:: thought challenging, CBT techniques, discharge planning, strengths perspective and other (maintenance planning) Client Response:: Pt responded well to session, open to meeting with therapist. Pt reports since last session he has been cooking more and he is feeling more capable. Pt reports things have been going well with his and he feels much less stressed at work. Pt stated he is somewhat anxious about discharging, but pt recognizes that he has made progress since his admission in May. Pt noted progress in improved appetite, reduced avoidance, reduced ruminations, better communication, less depression, and less catastrophizing. Pt shared he had gained a lot of awareness around boundary setting and knowing what supports are in his life and the ways these supports can help him. Pt receptive to working on a maintenance plan and wants to do this for homework. Discussed the things that could go on his maintenance plan and pt was encouraged to use his IOP binder for help. Risks/Concerns:: Pt denies any active suicidal ideation, plan, or intent. Pt denies any thoughts of . Progress Toward Goals/Plan:: Pt has made significant progress while in IOP tx and he plans to discharge next Wednesday. Pt was planning to discharge on 07/27/25 but pt's schedule changed due to the holidays. Pt is established with outpatient psychiatry and outpatient counseling. Pt's DSM-5 scores have decreased by 83% since admission and pt reports a consistent reduction in symptoms overall. Time Stopped:: 11:10
== END 2025-07-29 23:59 ==
LOC: BHIOP 08:34
PROVIDERS: PCP Registered Nurse; Referring Provider Student in an Organized Health Care Education/Training Program; Visit Provider Student in an Organized Health Care Education/Training Program
DX: F41.1 Generalized anxiety disorder (principal)
CPT/HCPCS: S9480; 90832; 90834; 90837; 90853

== ENCOUNTER 2025-07-30 08:03 | Outpatient (RCR) | payer BC, SELFPAY ==
--- NOTE | 2025-08-01 08:11 | BH.AFTERPLAN ---
Aftercare Plan Demographics Treatment End Date:: 08/01/25 Psychiatrist:: Ron Faust Psychiatrist Office #:: [phone] [facility]/IOP Therapist:: Sammie Gallego Therapist Phone #:: [phone] Medications Home Medications clonazepam 0.5 mg tablet 0.5 mg PO QHS 06/08/25 clonazepam 0.5 mg tablet (Klonopin) 0.5 mg PO DAILY PRN anxiety 06/08/25 escitalopram oxalate 20 mg tablet 20 mg PO DAILY 06/08/25 mirtazapine 7.5 mg tablet 7.5 mg PO BID 06/08/25 buspirone 15 mg tablet 15 mg PO TID #90 tabs 07/06/25 hydroxyzine HCl 25 mg tablet 25 mg PO QHS #30 tabs 07/20/25 Plan Details Progress/Aftercare Plan Details:: Pt has responded well to treatment as evidenced by Pt consistently attending IOP sessions and his reduction of DSM-5 scores since admission. Pt was always attentive and receptive to learning during group and individual sessions. Pt applied coping skills outside of IOP consistently, reports overall his mood is improved, and he is functioning better than he was several months ago. Pt?s overall symptom reduction is 83% since admission with anger decreasing by 100%, depression decreasing by 75%, OCD-like symptoms decreasing by 100%, and anxiety decreasing by 83%. Pt has increased self-confidence in his ability to face anxiety triggers and pt has significantly increased his distress tolerance. Pt has also improved his ability to communicate his needs, challenge distortions, and accomplish goals. Pt will follow up with Dr. Faust at [facility] and [facility] for individual counseling. Strategies for Success:: 1. Opposite action! Continue to break that cycle of anxiety and depression by not letting emotions be the only drivers of your bus. Remember you do have the power to get off on a new exit. 2. Remember that thoughts are thoughts NOT facts! You have power in if you give thoughts the time of day or not. 3. self-care! You deserve to take time for you and you also deserve to face the not so fun self-care like sitting with the uncomfortable and expressing your needs to people 4. Self-compassion! You are human and you will make a mistake?BUT that doesn?t mean you are a failure or not good enough. Give yourself credit for all the wonderful things you do. 5. continue working on your fear ladder! You have done so well with it. 6. Practice positive self-talk and keep track of your wins. 7. Remember progress isn?t linear! You may have a setback or bump in the road, but that doesn?t mean you?ve lost all progress. 8. self-reflection and self-awareness. 9. Delay, Distract, Decide 10. Live in the briones!! Appointments Appointments/Referrals to Other Services:: 1. [facility] for individual therapy, session on 07/31/25. 2. Dr. Faust for medication management, apt on 09/03/25. 3. IOP aftercare starting on 08/16/25 for 8 weeks. Time 2-3:30pm
--- NOTE | 2025-08-01 08:18 | BH.DS_ITS ---
Discharge Summary Demographics Date of Admission:: 06/05/25 Discharge Date: 08/01/25 Presenting Problems at Admission:: Pt is a 29-year-old male with a history of NICOLE who was referred to [facility] tx by his outpatient therapist at [facility] due to worsening anxiety and decompensation over the past two months. Pt currently endorses daily anxiety with panic attacks, racing thoughts, avoidance behaviors, poor appetite, weight loss, and nausea. Pt also reports occasional passive SI due to the stress he has been under, but no report of active SI. Pt's symptoms are impacting his ability to function on a daily basis. 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 Pt no longer meets criteria for [facility] level of care and will continue with outpatient counseling and [facility] aftercare. Treatment Progress During Treatment & Response: Pt has responded well to treatment as evidenced by Pt consistently attending IOP sessions and his reduction of DSM-5 scores since admission. Pt was always attentive and receptive to learning during group and individual sessions. Pt applied coping skills outside of [facility] consistently, reports overall his mood is improved, and he is functioning better than he was several months ago. Pt?s overall symptom reduction is 83% since admission with anger decreasing by 100%, depression decreasing by 75%, OCD-like symptoms decreasing by 100%, and anxiety decreasing by 83%. Pt has increased self-confidence in his ability to face anxiety triggers and pt has significantly increased his distress tolerance. Pt has also improved his ability to communicate his needs, challenge distortions, and accomplish goals. Pt will follow up with Dr. Faust at [facility] and [facility] for individual counseling. Issues Still to be Addressed:: Pt can continue to work on building confidence in expressing needs/emotions, further increasing his distress tolerance, and reducing negative thinking patterns. Discharge Recommendations/Instructions:: 1. [facility] for individual therapy, session on 07/31/25. 2. Dr. Faust for medication management, apt on 09/03/25. 3. [facility] aftercare starting on 08/16/25 for 8 weeks. Time 2-3:30pm Discharge Handout
--- NOTE | 2025-08-01 09:00 | BH.SGPN.GN ---
Behaviors/Verbalizations/Mental Status: [] Pt alert and oriented, Neatly dressed and groomed. Eye contact good. Motor activity appropriate. Speech within normal limits. Affect congruent, mood depressed. Thoughts linear, logical, no signs of hallucinations or delusions. Reviewed pt?s symptom tracker today, denies suicidal ideation, plan, and intent.08/01/25 Client Response/Progress/Benefit: []Pt was an active participant in group discussions. Attentive. Per patients daily symptom tracker, pt indicates a 0/5 for depression and a 1/5 for anxiety, with 5 being severe. Pt's mental health positive was being able to handle his anxiety about eating and being around family during [place]. Pt stated that he did not feel much anxiety, and was able to eat without feeling distressed. Pt's other mental health positive was going to a dinner with his fiance where he knew the food being catered was not going to be good. Despite this, pt stated that he was able to eat a small amount without feeling anxious. Pt's stressor is butting heads with his about their pet cat. Pt stated that he did not want the cat in the first place, and would like to get rid of it. Pt mentioned that him and his are considering couples counseling to help them work it out. Pt was supportive and attentive to others in the group. Pt seemed to benefit from support from peers. Pt discharged from [facility] today 08/01/25.
--- NOTE | 2025-08-01 11:10 | BH.SGPN.GN ---
Behaviors/Verbalizations/Mental Status: []Eye contact is good. Motor activity is appropriate. Appearance is neat. Speech is Appropriate. Mood is hopeful. Affect is congruent. Thoughts are linear and logical. No evidence of psychosis. Client Response/Progress/Benefit: [] Pt was an active participant and responded well to session AEB input and examples during group activity. Group discussed and practiced methods of reframing cognitive distortions. Pt participated in identifying cognitive distortions when examples were provided. Pt discussed in group the different strategies to overcome the distortions. Pt identified cognitive distortion they use most often which is jumping to conclusions and pt reports plan to continue working on reframing these thoughts. Pt did well in small group during experiential activity and helped group identify answers. Will discharge from IOP tx as pt has accomplished his tx goals and no longer meets criteria for IOP level of care. ? Narrative Note: []
== END 2025-08-01 12:19 | disposition home or self-care (01) ==
LOC: BHIOP 08:03
PROVIDERS: PCP Registered Nurse; Referring Provider Student in an Organized Health Care Education/Training Program; Visit Provider Student in an Organized Health Care Education/Training Program
DX: F41.1 Generalized anxiety disorder (principal)
CPT/HCPCS: S9480; 90853